=== PATIENT | female | born 1940 | race Hispanic/Latino ===

== ENCOUNTER 2017-03-06 19:56 | Inpatient (IN) | payer MEDICARE ==
[2017-03-06 21:03] LABS: Basophils % (Auto) 0.4 % (0.0-1.8); Eosinophils % (Auto) 3.3 % (0.0-4.3); Hematocrit 39.4 % (30.3-42.9); Hemoglobin 13.5 gm/dl (10.1-14.3); Mean Corpuscular HGB Conc 34 % (30-34); Mean Corpuscular Hemoglobin 31 pg (28-32); Mean Corpuscular Volume 92 fl (79-97); Platelet Count 216 K/mm3 (140-440); Red Blood Count 4.28 M/mm3 (3.65-5.03); Red Cell Distribution Width 13.1 % (13.2-15.2)
[2017-03-06 21:27] LABS: Anion Gap 21 mmol/L; BUN/Creatinine Ratio 17.85; Blood Urea Nitrogen 25 mg/dL (7-17); Calcium 8.4 mg/dL (8.4-10.2); Carbon Dioxide 20 mmol/L (22-30); Chloride 95.7 mmol/L (98-107); Glucose 97 mg/dL (65-100); Potassium 3.7 mmol/L (3.6-5.0); Sodium 133 mmol/L (137-145)
[2017-03-06 21:51] LABS: INR 0.9 (0.87-1.13); Partial Thromboplastin Time 24.2 Sec. (24.2-36.6)
[2017-03-06] MEDS ORDERED: ZOFRAN IV ONE (21:57)
[2017-03-06] MEDS ORDERED: MORPHINE IV ONE (21:57)
--- NOTE | 2017-03-06 21:58 | Emergency Department Report ---
HPI - General Chief Complaint: Chest Pain Time Seen by Provider: 03/06/17 21:09 - HPI HPI: Patient is a 68-year-old female who presents for evaluation of chest pain. The patient reports chest pain for the past 3 hours, constant since onset, pressure- like in quality, 10/10 in severity. She also reports associated dyspnea. The patient denies fever, trauma to the chest wall, cough, syncope, hemoptysis, unilateral leg swelling, recent immobilization, history of DVT or PE, recent cancer. ED Past Medical Hx - Past Medical History Previous Medical History?: Yes Hx Hypertension: Yes Hx CVA: Yes (2012 no deficits) Hx Heart Attack/AMI: Yes (10/24) Hx Congestive Heart Failure: Yes Hx Diabetes: Yes Hx Deep Vein Thrombosis: No Hx Pulmonary Embolism: Yes Hx GERD: No Hx Liver Disease: No Hx Renal Disease: No Hx Sickle Cell Disease: No Hx Arthritis: Yes Hx Headaches / Migraines: No Hx Seizures: No Hx Kidney Stones: No Hx Psychiatric Treatment: No Hx Asthma: No Hx COPD: Yes (diagnosed in 2009) Hx Tuberculosis: No Hx Dementia: No Hx HIV: No Additional medical history: high cholesterol - Surgical History Past Surgical History?: Yes Hx Pacemaker: No Hx Internal Defibrillator: No Hx Cholecystectomy: Yes Hx Appendectomy: Yes Additional Surgical History: tonsiLlectomy. HYSTERECTOMY - Social History Smoking Status: Current Every Day Smoker Substance Use Type: None - Medications Home Medications: Home Medications Medication Instructions Recorded Confirmed Last Taken Type Calcium Carbonate [Oscal] 1,250 mg PO BID 06/27/14 03/01/16 02/29/16 21:00 History Cholecalciferol (Vitamin D3) 1,000 unit PO QDAY 09/29/14 03/01/16 02/29/16 09: 00 History [Vitamin D3] Docusate Sodium [Colace CAP] 100 mg PO BID PRN 09/29/14 03/01/16 02/29/16 21:00 History Dorzolamide/Timolol(Nf) 2-0.5% 1 drops OP BID 09/29/14 03/01/16 02/29/16 21:00 History [Cosopt (Nf)] Multivitamin [Multi-Vitamin Daily] 1 each PO QDAY 09/29/14 03/01/16 02/29/16 09: 00 History with iron Clopidogrel [Plavix] 75 mg PO QDAY tablet 02/25/15 03/01/16 02/29/16 09:00 Rx Metoprolol [Lopressor TAB] 25 mg PO BID tablet 02/25/15 03/01/16 02/29/16 21: 00 Rx Aspirin EC [Aspirin Enteric Coated 81 mg PO QDAY tablet 05/11/15 03/01/1602/28 21:00 Rx TAB] Ondansetron [Zofran ODT TAB] 4 mg PO Q8HR #20 tab.rapdis 08/21/15 03/01/1609/11 Rx 2100 Benzonatate [Tessalon Perles] 100 mg PO Q8HR #60 capsule 09/04/15 03/01/1602/28 21:00 Rx LORazepam [Ativan] 1 mg PO Q8H tablet 09/04/15 03/01/16 02/29/16 Rx OLANzapine [ZyPREXA] 15 mg PO QHS #30 tablet 09/04/15 03/01/16 02/29/16 21:00 Rx 15mg carBAMazepine XR [TEGretol Xr] 200 mg PO BID #60 tablet 09/04/15 03/01/16 21:00 Rx Azithromycin [Zithromax TAB] 500 mg PO QDAY #3 tablet 03/03/16 Unknown Rx Budesoni/Formoterol 80-4.5(Nf) 2 puff IH BID #1 container 03/03/16 Unknown Rx [Symbicort 80-4.5 (Nf)] Prednisone [predniSONE] 20 mg PO QDAY #7 tab 03/03/16 Unknown Rx Zolpidem [Ambien] 5 mg PO QHS PRN #7 tablet 03/03/16 Unknown Rx ED Review of Systems ROS: Stated complaint: CHEST PAIN Other details as noted in HPI Constitutional: denies: fever ENT: denies: throat or neck pain Respiratory: denies: cough, shortness of breath Cardiovascular: reports chest pain Endocrine: denies unexplained weight loss or gain Gastrointestinal: denies: abdominal pain, nausea Genitourinary: denies: dysuria Musculoskeletal: denies: leg swelling Skin: denies: rash Neurological: denies: headache Hematological/Lymphatic: denies: easy bleeding or easy bruising Psych: denies sadness or hopelessness Physical Exam - Physical Exam Vital Signs: Vital Signs 03/06/17 03/06/17 20:35 21:29 Temperature 98.2 F 98.3 F Pulse Rate 60 60 Respiratory 20 19 Rate Blood Pressure 84/50 Blood Pressure 96/53 [Right] O2 Sat by Pulse 98 97 Oximetry Physical Exam: General: well-nourished, well-developed, no acute distress Head: Normocephalic, atraumatic Eyes: normal sclera ENT: Mucous membranes are pink and moist Neck: trachea midline, neck supple, No neck stiffness, no cervical adenopathy Respiratory: Breath sounds equal bilaterally, no wheezing, rales, or rhonchi Cardio: S1 and S2 present, no murmurs, rubs, gallops, capillary refill is brisk Abdomen: Normoactive bowel sounds, soft abdomen, no rigidity, no guarding or rebound tenderness Musc: No pitting edema Skin: No rash Neuro: no facial drooping, normal speech Psych: Normal affect ED Course Vital Signs 03/06/17 03/06/17 20:35 21:29 Temperature 98.2 F 98.3 F Pulse Rate 60 60 Respiratory 20 19 Rate Blood Pressure 84/50 Blood Pressure 96/53 [Right] O2 Sat by Pulse 98 97 Oximetry ED Medical Decision Making - Lab Data Result diagrams: 03/06/17 20:48 03/06/17 20:48 - Medical Decision Making The patient was seen and examined by myself. The patient is placed on a deicer inspector pneumatic and continuous pulse ox. On initial evaluation, the patient was found to be in no distress. EKG was negative for findings suggestive of acute cardiac infarct. The patient is given an aspirin and an IV dose of pain for pain. Labs and imaging are obtained. Chest x-ray is negative for pneumothorax, focal consolidation, pulmonary vascular congestion, pleural effusion, or other obvious acute cardiopulmonary disease process. Lab results revealed elevated creatinine of 1.4, and otherwise labs were non-revealing including negative troponin, WBC, hemoglobin, hematocrit, electrolytes. The patient was reevaluated and reported that their symptoms were improved. As the patient has chest pain and risk factors for development of acute coronary event, the patient will be admitted for close cardiopulmonary monitoring, serial troponins , and evaluation by cardiology. The physician on-call was contacted. They presented to the emergency department and evaluated the patient. They agreed to admit the patient. The ED admit order was placed. The patient was admitted in guarded condition. Critical care attestation.: If time is entered above; I have spent that time in minutes in the direct care of this critically ill patient, excluding procedure time. ED Disposition Clinical Impression: ALAN (acute kidney injury), Acute chest pain Disposition: OP ADMITTED IP TO THIS HOSP Is pt being admited?: Yes Does the pt Need Aspirin: Yes Condition: Fair Instructions: Chest Pain (ED) Time of Disposition: 21:58
[2017-03-06] MEDS ORDERED: BABY ASPIRIN PO ONE (21:59)
[2017-03-06] MEDS ORDERED: DULCOLAX PR PRN (23:46)
[2017-03-06] MEDS ORDERED: MILK OF MAGNESIA PO PRN (23:46)
[2017-03-06] MEDS ORDERED: ZOFRAN IV PRN (23:46)
--- NOTE | 2017-03-06 23:49 | History and Physical Report ---
History of Present Illness Date of examination: 03/06/17 History of present illness: 76-year-old woman with a history of hypertension, diabetes, coronary artery disease, CHF, COPD, osteoporosis comes emergency room with complaints of chest pain. Pain is in the left substernal area which she described as achy feeling, constant, started at 5 PM, intensity 5/10, no radiation, she cannot identify exacerbating or relieving factors. Admits to nausea, no shortness breath, diaphoresis or palpitation. She had a stress test done a few months ago Patient denies cough, abdominal pain, hematochezia, dysuria, frequency, focal weakness, dysarthria, fever chills, polydipsia polyuria, hot or cold intolerance , easy bruisability, or rash or bleeding from mucosal membrane, rhinorrhea, epistaxis, earache, tinnitus, blurry vision, eye discharge, anxiety, depression. Other review of systems negative PAST SURGICAL HISTORY: Appendectomy, hysterectomy, tonsillectomy, hysterectomy SOCIAL HISTORY: Smoke a pack a day, no alcohol or drugs FAMILY HISTORY: Hypertension Medications and Allergies Allergies Allergy/AdvReac Type Severity Reaction Status Date / Time nicotine Allergy Severe PT Verified 05/01/15 01:32 ALLERGIC TO NICOTINE PATCH/ RASH OVER ENTIRE BODY amoxicillin trihydrate Allergy Rash Verified 05/01/15 01:32 [From Augmentin] cephalexin monohydrate Allergy Rash Verified 05/01/15 01:32 [From Keflex] Penicillins Allergy Rash Verified 05/01/15 01:32 potassium clavulanate Allergy Rash Verified 05/01/15 01:32 [From Augmentin] Home Medications Medication Instructions Recorded Confirmed Last Taken Type Calcium Carbonate [Oscal] 1,250 mg PO BID 06/27/14 03/01/16 02/29/16 21:00 History Cholecalciferol (Vitamin D3) 1,000 unit PO QDAY 09/29/14 03/01/16 02/29/16 09: 00 History [Vitamin D3] Docusate Sodium [Colace CAP] 100 mg PO BID PRN 09/29/14 03/01/16 02/29/16 21:00 History Dorzolamide/Timolol(Nf) 2-0.5% 1 drops OP BID 09/29/14 03/01/16 02/29/16 21:00 History [Cosopt (Nf)] Multivitamin [Multi-Vitamin Daily] 1 each PO QDAY 09/29/14 03/01/16 02/29/16 09: 00 History with iron Clopidogrel [Plavix] 75 mg PO QDAY tablet 02/25/15 03/01/16 02/29/16 09:00 Rx Metoprolol [Lopressor TAB] 25 mg PO BID tablet 02/25/15 03/01/16 02/29/16 21: 00 Rx Aspirin EC [Aspirin Enteric Coated 81 mg PO QDAY tablet 05/11/15 03/01/1602/28 21:00 Rx TAB] Ondansetron [Zofran ODT TAB] 4 mg PO Q8HR #20 tab.rapdis 08/21/15 03/01/1609/11 Rx 2100 Benzonatate [Tessalon Perles] 100 mg PO Q8HR #60 capsule 09/04/15 03/01/1602/28 21:00 Rx LORazepam [Ativan] 1 mg PO Q8H tablet 09/04/15 03/01/16 02/29/16 Rx OLANzapine [ZyPREXA] 15 mg PO QHS #30 tablet 09/04/15 03/01/16 02/29/16 21:00 Rx 15mg carBAMazepine XR [TEGretol Xr] 200 mg PO BID #60 tablet 09/04/15 03/01/16 21:00 Rx Azithromycin [Zithromax TAB] 500 mg PO QDAY #3 tablet 03/03/16 Unknown Rx Budesoni/Formoterol 80-4.5(Nf) 2 puff IH BID #1 container 03/03/16 Unknown Rx [Symbicort 80-4.5 (Nf)] Prednisone [predniSONE] 20 mg PO QDAY #7 tab 03/03/16 Unknown Rx Zolpidem [Ambien] 5 mg PO QHS PRN #7 tablet 03/03/16 Unknown Rx Exam - Physical Exam Narrative exam: Gen. appearance: Patient lying in bed, no apparent distress HEENT: Normocephalic, atraumatic, pupils equally round and reactive to light, extraocular movement intact, and no sclericterus,. No JVD or thyromegaly or nodule,neck supple, no carotid bruit ,mucous membranes moist, no exudate or erythema Heart: S1, S2, regular rate and rhythm Lungs: Clear to auscultation bilaterally, breathing comfortable Abdomen: Positive bowel sounds, nontender, nondistended, no organomegaly Extremity: No edema, cyanosis, clubbing Skin: No rash, nodules, warm, dry Neuro: Oriented 3, cranial nerves II-12 intact, speech is fluent, motor and sensory intact - Constitutional Vitals: Temp Pulse Resp BP Pulse Ox 98.3 F 60 19 96/53 97 03/06/17 21:29 03/06/17 21:29 03/06/17 21:29 03/06/17 21:29 03/06/17 21:29 Results - Labs CBC & Chem 7: 03/06/17 20:48 03/06/17 20:48 Labs: Abnormal lab results 03/06/17 03/06/17 03/06/17 Range/Units 20:48 20:48 21:26 RDW 13.1 L (13.2-15.2) % Lymph % (Auto) 41.1 H (13.4-35.0) % [place] % (Auto) 9.9 H (0.0-7.3) % [place] # 0.9 H (0.0-0.8) K/mm3 PT 12.0 L (12.2-14.9) Sec. Chloride 95.7 L (98-107) mmol/L Carbon Dioxide 20 L (22-30) mmol/L BUN 25 H (7-17) mg/dL Creatinine 1.4 H (0.7-1.2) mg/dL - Imaging and Cardiology EKG: image reviewed Chest x-ray: image reviewed Assessment and Plan Unstable angina Coronary artery disease Hypertension Diabetes CHF, stable COPD Osteoarthritis Admits medicine Check cardiac enzymes, consult cardiology Continue outpatient medication, start DVT prophylaxis
[2017-03-07] MEDS: PERCOCET 5/325 PO PRN ×2 (02:01→07:30)
[2017-03-07] MEDS: TYLENOL PO PRN (05:24)
[2017-03-07 06:50] LABS: Hematocrit 40.4 % (30.3-42.9); Hemoglobin 13.7 gm/dl (10.1-14.3); Mean Corpuscular HGB Conc 34 % (30-34); Mean Corpuscular Hemoglobin 31 pg (28-32); Mean Corpuscular Volume 93 fl (79-97); Platelet Count 199 K/mm3 (140-440); Red Blood Count 4.36 M/mm3 (3.65-5.03); Red Cell Distribution Width 13.3 % (13.2-15.2); White Blood Count 7.6 K/mm3 (4.5-11.0)
[2017-03-07 07:07] LABS: BUN/Creatinine Ratio 21.53; Calcium 8.5 mg/dL (8.4-10.2); Chloride 97.3 mmol/L (98-107)
[2017-03-07 07:15] LABS: Creatine Kinase MB 2.1 ng/mL (0.0-4.0)
[2017-03-07 07:17] LABS: Creatine Kinase 80 units/L (30-135)
[2017-03-07 07:37] LABS: Basophils % (Manual) 0 % (0.0-1.8); Blastocytes % (Manual) 0 %
[2017-03-07 07:38] LABS: Diff Status Complete; Platelet Estimate Consistent w Auto; RBC Morphology Normal
[2017-03-07] MEDS ORDERED: PROVENTIL IH ONE (08:01)
--- NOTE | 2017-03-07 08:04 | Admit Criteria Form ---
Admission Criteria Documentation: RENAL FAILURE, ACUTE Clinical Indications for Admission to Inpatient Care ( Place 'X' for any and all applicable criteria): Admission is indicated for ALL (if I & II) or III of the following [A](2)(3)(4)( 5)(6)(7): [ ]I. Acute renal failure as indicated by ANY ONE of the following: [ ]a) A 3-fold rise in serum creatinine from baseline [ ]b) Serum creatinine greater than 4 mg/dL (354 micromoles/L) with an acute rise greater than 0.5 mg/dL (44.2 micromoles/L) [ ]c) Reduction of more than 75% in estimated glomerular filtration rate from baseline [ ]d) Estimated glomerular filtration rate less than 35 mL/min/1.73m2 (0.59mL/sec/1.73m2)in a child up to 18 years of age [ ]e) Anuria indicated by ALL of the following: [ ]i) Adequate volume status [ ]ii) Cessation of urine output indicated by ANY ONE of the following: [ ]1) Urine output less than 0.3 mL/kg/hr for 24 hours [ ]2) Anuria (urine output less than 0.1 mL/kg/ hr) for 12 hours [X] II. Renal failure cannot be managed in an outpatient setting or observational care setting as indicating by ANY ONE of the following: [ ]a) Altered mental status that is severe or persistent [ ]b) Volume overload or Respiratory distress (eg, clinically significant pulmonary edema) that is severe or persistent [ ]c) Cardiac arrhythmias of immediate concern [ ]d) Hemodynamic instability [ ]e) Clinically significant electrolyte abnormality that requires inpatient care (eg, hyperkalemia with severe ECG findings)[B] [ ]f) Clinically significant metabolic abnormality (eg, acidosis) that is severe or persistent [ ]g) Acute treatment of renal failure (eg, renal replacement therapy) not feasible or appropriate in observational care setting [ ]h) Clinical situation too unstable or uncertain (eg, inadequate urine output, ongoing decline in renal function, etiology unclear) [ ]i) Necessary support and caregiver ability to comply with outpatient treatment cannot be arranged in observation care timeframe (eg, within 24 hours) [X]j) Other significant finding or clinical condition judged not to be within scope of observation care [X]III.General contraindications and/or Inappropriate clinical situations for Observational Care in patients with Acute Renal Failure, when ANY ONE of the following is required: [X]a) Prediction of prolongation of LOS based on ANY ONE of the following may be considered as a contraindication for observational care 2, 3, 4, 5, 6, 7, 8 , 9, 10, 11 [X]i) Age > 65 yrs. [ ]ii) Patient arriving by ambulance [ ]iii) Patient with high acuity [ ]iv) Patient requiring vital sign monitoring [ ]v) Patient on IV medication [ ]b) Systolic blood pressures 180mmHg 3,12 [ ]c) Patient with altered mental status including delirium and other alteration of consciousness, (3) [ ]d) Patient whose discharge disposition will be to a care home home or rehabilitation home should not be managed in Emergency Department Observation Unit. CMS rule requires 3 days hospital stay before such placement.3,13 [ ]e) Patient with failure to thrive due to broad array of etiologies 3, 16,17 [ ]f) Inability to ambulate 3,14 Extended stay beyond goal length of stay may be needed for(13) [ ]a) Continuing uremic complications [ ]b) Care for comorbidities [ ]c) acute renal failure [ ]d) Need for dialysis The original [employer] content created by [employer] has been revised. The portions of the content which have been revised are identified through the use of italic text or in bold, and [facility] has neither reviewed nor approved the modified material. All other unmodified content is copyright [facility]. Please see references footnoted in the original [employer] [facility] edition 2016 Admission Criteria Met: Yes
--- NOTE | 2017-03-07 08:09 | XRay Report ---
AP CHEST : 03/06/17 19:56:00 CLINICAL: Chest pain. COMPARISON:03/02/16 FINDINGS: Normal heart and pulmonary vessels. The lungs are mildly hyperexpanded and hyperlucent. Bibasal subsegmental atelectasis. No airspace disease or pleural effusion. No tubes or lines. The bones and soft tissues are unremarkable. IMPRESSION: COPD and mild bibasal subsegmental atelectasis.
[2017-03-07] MEDS ORDERED: ASPIRIN PO SCH (10:00)
[2017-03-07] MEDS ORDERED: LOVENOX SUB-Q SCH (10:00)
--- NOTE | 2017-03-07 10:03 | Consultation ---
History of Present Illness Consult date: 03/07/17 Consult reason: chest pain History of present illness: This is a 76yr old woman who presented to this hospital with chest pain not relieved with nitroglycerin x 3 doses. Patient describes pain under her left breast associated with diaphoresis. An ECG is benign, a normal sinus rhythm. Cardiac enzymes measured were normal; a CK/MB of 2.1 and relative index of 2.6. Cardiac consultation requested for further evaluation and recommendations. Just over 2 years ago she had a cardiac cath that demonstrates mild non- obstructive coronary disease of the mild LAD that was recommended for medical therapy. An echocardiogram August 2015 revealed a normal EF. Today, the patient is resting in bed comfortably and is currently chest pain free. She denies shortness of breath and palpitations. Past History Past Medical History: CAD, COPD, hypertension Medications and Allergies Allergies Allergy/AdvReac Type Severity Reaction Status Date / Time nicotine Allergy Severe PT Verified 05/01/15 01:32 ALLERGIC TO NICOTINE PATCH/ RASH OVER ENTIRE BODY amoxicillin trihydrate Allergy Rash Verified 05/01/15 01:32 [From Augmentin] cephalexin monohydrate Allergy Rash Verified 05/01/15 01:32 [From Keflex] Penicillins Allergy Rash Verified 05/01/15 01:32 potassium clavulanate Allergy Rash Verified 05/01/15 01:32 [From Augmentin] Home Medications Medication Instructions Recorded Confirmed Last Taken Type Calcium Carbonate [Oscal] 1,250 mg PO BID 06/27/14 03/07/17 1 Day Ago History Cholecalciferol (Vitamin D3) 1,000 unit PO QDAY 09/29/14 03/07/17 1 Day Ago History [Vitamin D3] Docusate Sodium [Colace CAP] 100 mg PO BID PRN 09/29/14 03/07/17 1 Day Ago History Dorzolamide/Timolol(Nf) 2-0.5% 1 drops OP BID 09/29/14 03/07/17 1 Day Ago History [Cosopt (Nf)] Multivitamin [Multi-Vitamin Daily] 1 each PO QDAY 09/29/14 03/07/17 1 Day Ago History Clopidogrel [Plavix] 75 mg PO QDAY tablet 02/25/15 03/07/17 1 Day Ago Rx Metoprolol [Lopressor TAB] 25 mg PO BID tablet 02/25/15 03/07/17 1 Day Ago Rx Aspirin EC [Aspirin Enteric Coated 81 mg PO QDAY tablet 05/11/15 03/07/17 1 Day Ago Rx TAB] Ondansetron [Zofran ODT TAB] 4 mg PO Q8HR #20 tab.rapdis 08/21/15 03/07/17 1 Day Ago Rx Benzonatate [Tessalon Perles] 100 mg PO Q8HR #60 capsule 09/04/15 03/07/17 1 Day Ago Rx LORazepam [Ativan] 1 mg PO Q8H tablet 09/04/15 03/07/17 1 Day Ago Rx OLANzapine [ZyPREXA] 15 mg PO QHS #30 tablet 09/04/15 03/07/17 1 Day Ago Rx carBAMazepine XR [TEGretol Xr] 200 mg PO BID #60 tablet 09/04/15 03/07/17 1 Day Ago Rx Azithromycin [Zithromax TAB] 500 mg PO QDAY #3 tablet 03/03/16 03/07/17 1 Day Ago Rx Budesoni/Formoterol 80-4.5(Nf) 2 puff IH BID #1 container 03/03/16 03/07/17 1 Day Ago Rx [Symbicort 80-4.5 (Nf)] Prednisone [predniSONE] 20 mg PO QDAY #7 tab 03/03/16 03/07/17 1 Day Ago Rx Zolpidem [Ambien] 5 mg PO QHS PRN #7 tablet 03/03/16 03/07/17 1 Day Ago Rx Active Meds: Active Medications Acetaminophen (Tylenol) 650 mg PO Q4H PRN PRN Reason: Pain MILD(1-3)/Fever >100.5/HORNE Last Admin: 03/07/17 05:24 Dose: 650 mg Albuterol (Proventil) 2.5 mg IH TIDRT [facility] Aspirin (Aspirin) 325 mg PO QDAY [facility] Last Admin: 03/07/17 09:31 Dose: 325 mg Bisacodyl (Dulcolax) 10 mg [place] QDAY PRN PRN Reason: Constipation unrelieved by MOM Enoxaparin Sodium (Lovenox) 40 mg SUB-Q QDAY [facility] Last Admin: 03/07/17 09:31 Dose: 40 mg Magnesium Hydroxide (Milk Of Magnesia) 30 ml PO Q4H PRN PRN Reason: Constipation Ondansetron HCl (Zofran) 4 mg IV Q8H PRN PRN Reason: N/V unrelieved by Reglan Last Admin: 03/07/17 02:00 Dose: 4 mg Oxycodone/Acetaminophen (Percocet 5/325) 1 tab PO Q6H PRN PRN Reason: Pain, Moderate (4-6) Last Admin: 03/07/17 07:30 Dose: 1 tab Physical Examination Vital Signs Temp Pulse Resp BP Pulse Ox 98.2 F 60 20 84/50 98 03/06/17 20:35 03/06/17 20:35 03/06/17 20:35 03/06/17 20:35 03/06/17 20:35 General appearance: no acute distress HEENT: Positive: PERRL Neck: Positive: trachea midline Cardiac: Positive: Reg Rate and Rhythm Lungs: Positive: Decreased Breath Sounds Results 03/07/17 05:06 03/07/17 05:06 Cardiac Enzymes 03/07/17 Range/Units 05:06 CK-MB (CK-2) 2.1 (0.0-4.0) ng/mL CBC 03/07/17 Range/Units 05:06 WBC 7.6 (4.5-11.0) K/mm3 RBC 4.36 (3.65-5.03) M/mm3 Hgb 13.7 (10.1-14.3) gm/dl Hct 40.4 (30.3-42.9) % Plt Count 199 (140-440) K/mm3 Comprehensive Metabolic Panel 03/07/17 Range/Units 05:06 Sodium 131 L (137-145) mmol/L Potassium 4.0 (3.6-5.0) mmol/L Chloride 97.3 L (98-107) mmol/L Carbon Dioxide 19 L (22-30) mmol/L BUN 28 H (7-17) mg/dL Creatinine 1.3 H (0.7-1.2) mg/dL Glucose 92 (65-100) mg/dL Calcium 8.5 (8.4-10.2) mg/dL EKG interpretations - EKG Sinus rhythms and dysrhythmias: sinus rhythm Assessment and Plan Chest pain, atypical Hx of COPD Hypertension Normal EF on echo 08/2015. LHC 10/2014 revealed mild non obstructive disease of the mid LAD. Ejection fraction 60%. Medical therapy recommended. Plan: Further cardiac evaluation with a pre-discharge dobutamine thallium stress test.
[2017-03-07 10:20] LABS: Creatine Kinase MB 2.2 ng/mL (0.0-4.0)
[2017-03-07 10:21] LABS: Creatine Kinase 81 units/L (30-135)
[2017-03-07] MEDS: PROVENTIL IH SCH ×2 (14:49→20:30)
[2017-03-07] MEDS ORDERED: AMBIEN PO PRN (18:54)
--- NOTE | 2017-03-07 19:04 | Progress Note ---
Assessment and Plan Assessment and plan: 76 yo female with CAD admitted for chest pain that not resolved with Ntg x3 1. Chest pain In a patient with known CAD (nonobstructive mid LAD per cardiac cath 2-3 years ago; normal EF at that time) EKG with no acute ischemic changes cardiac enzymes negative Cardiology consulted and plans stress test in a.m. On dual antiplatelet therapy, statin, beta susi; not on ACEI due to renal impairment 2. CAD See above 3. Hypertension BP controlled on beta susi Monitor and adjust treatment as needed 4. Acute renal failure Likely secondary to vasomotor nephropathy Monitor renal function and electrolytes If EF not significantly decreased, will give IV fluids 5. Metabolic acidosis Likely due to acute kidney injury 6. Hyponatremia Mild, monitor 7. COPD Inhaled bronchodilators, supplemental oxygen as needed 8. Psychiatric disorder Resume olanzapine and carbamazepine 9. DVT prophylaxis Due to acute kidney injury, we'll change Lovenox to heparin subcutaneous History Interval history: chest pain free, no other complaints Hospitalist Physical - Constitutional Vitals: Temp Pulse Resp BP Pulse Ox 97.9 F 70 18 107/54 92 03/07/17 16:00 03/07/17 16:00 03/07/17 16:00 03/07/17 16:00 03/07/17 16:00 General appearance: Present: no acute distress, well-nourished - EENT Eyes: Present: PERRL, EOM intact. Absent: scleral icterus, conjunctival injection - Neck Neck: Present: supple, normal ROM. Absent: masses or JVD - Respiratory Respiratory effort: normal Respiratory: bilateral: CTA, negative: rales, rhonchi, wheezing - Cardiovascular Rhythm: regular Heart Sounds: Present: S1 & S2. Absent: systolic murmur - Extremities Extremities: no ischemia - Abdominal General gastrointestinal: soft, non-tender, non-distended, normal bowel sounds - Psychiatric Psychiatric: cooperative - Neurologic Neurologic: CNII-XII intact, no focal deficits Results - Labs CBC & Chem 7: 03/07/17 05:06 03/07/17 05:06 Labs: Laboratory Last Values WBC 7.6 K/mm3 (4.5-11.0) 03/07/17 05:06 RBC 4.36 M/mm3 (3.65-5.03) 03/07/17 05:06 Hgb 13.7 gm/dl (10.1-14.3) 03/07/17 05:06 Hct 40.4 % (30.3-42.9) 03/07/17 05:06 MCV 93 fl (79-97) 03/07/17 05:06 MCH 31 pg (28-32) 03/07/17 05:06 MCHC 34 % (30-34) 03/07/17 05:06 RDW 13.3 % (13.2-15.2) 03/07/17 05:06 Plt Count 199 K/mm3 (140-440) 03/07/17 05:06 Lymph % (Auto) [employer] 03/07/17 05:06 [place] % (Auto) 9.9 % (0.0-7.3) H 03/06/17 20:48 Eos % (Auto) 3.3 % (0.0-4.3) 03/06/17 20:48 Baso % (Auto) 0.4 % (0.0-1.8) 03/06/17 20:48 Lymph # 3.7 K/mm3 (1.2-5.4) 03/06/17 20:48 [place] # 0.9 K/mm3 (0.0-0.8) H 03/06/17 20:48 Eos # 0.3 K/mm3 (0.0-0.4) 03/06/17 20:48 Baso # 0.0 K/mm3 (0.0-0.1) 03/06/17 20:48 Add Manual Diff Complete 03/07/17 05:06 Total Counted 100 03/07/17 05:06 Seg Neutrophils % [employer] 03/07/17 05:06 Seg Neuts % (Manual) 33.0 % (40.0-70.0) L 03/07/17 05:06 Band Neutrophils % 0 % 03/07/17 05:06 Lymphocytes % (Manual) 55.0 % (13.4-35.0) H 03/07/17 05:06 Reactive Lymphs % (Man) 0 % 03/07/17 05:06 Monocytes % (Manual) 8.0 % (0.0-7.3) H 03/07/17 05:06 Eosinophils % (Manual) 4.0 % (0.0-4.3) 03/07/17 05:06 Basophils % (Manual) 0 % (0.0-1.8) 03/07/17 05:06 Metamyelocytes % 0 % 03/07/17 05:06 Myelocytes % 0 % 03/07/17 05:06 Promyelocytes % 0 % 03/07/17 05:06 Blast Cells % 0 % 03/07/17 05:06 Nucleated RBC % Not Reportable 03/07/17 05:06 Seg Neutrophils # 4.1 K/mm3 (1.8-7.7) 03/06/17 20:48 Seg Neutrophils # Man 2.5 K/mm3 (1.8-7.7) 03/07/17 05:06 Band Neutrophils # 0.0 K/mm3 03/07/17 05:06 Lymphocytes # (Manual) 4.2 K/mm3 (1.2-5.4) 03/07/17 05:06 Abs React Lymphs (Man) 0.0 K/mm3 03/07/17 05:06 Monocytes # (Manual) 0.6 K/mm3 (0.0-0.8) 03/07/17 05:06 Eosinophils # (Manual) 0.3 K/mm3 (0.0-0.4) 03/07/17 05:06 Basophils # (Manual) 0.0 K/mm3 (0.0-0.1) 03/07/17 05:06 Metamyelocytes # 0.0 K/mm3 03/07/17 05:06 Myelocytes # 0.0 K/mm3 03/07/17 05:06 Promyelocytes # 0.0 K/mm3 03/07/17 05:06 Blast Cells # 0.0 K/mm3 03/07/17 05:06 WBC Morphology Not Reportable 03/07/17 05:06 Hypersegmented Neuts Not Reportable 03/07/17 05:06 Hyposegmented Neuts Not Reportable 03/07/17 05:06 Hypogranular Neuts Not Reportable 03/07/17 05:06 Smudge Cells Not Reportable 03/07/17 05:06 Toxic Granulation Not Reportable 03/07/17 05:06 Toxic Vacuolation Not Reportable 03/07/17 05:06 Dohle Bodies Not Reportable 03/07/17 05:06 Pelger-Huet Anomaly Not Reportable 03/07/17 05:06 Aidan Rods Not Reportable 03/07/17 05:06 Platelet Estimate Consistent w auto 03/07/17 05:06 Clumped Platelets Not Reportable 03/07/17 05:06 Plt Clumps, EDTA Not Reportable 03/07/17 05:06 Large Platelets Not Reportable 03/07/17 05:06 Giant Platelets Not Reportable 03/07/17 05:06 Platelet Satelliting Not Reportable 03/07/17 05:06 Plt Morphology Comment Not Reportable 03/07/17 05:06 RBC Morphology Normal 03/07/17 05:06 Dimorphic RBCs Not Reportable 03/07/17 05:06 Polychromasia Not Reportable 03/07/17 05:06 Hypochromasia Not Reportable 03/07/17 05:06 Poikilocytosis Not Reportable 03/07/17 05:06 Anisocytosis Not Reportable 03/07/17 05:06 Microcytosis Not Reportable 03/07/17 05:06 Macrocytosis Not Reportable 03/07/17 05:06 Spherocytes Not Reportable 03/07/17 05:06 Pappenheimer Bodies Not Reportable 03/07/17 05:06 Sickle Cells Not Reportable 03/07/17 05:06 Target Cells Not Reportable 03/07/17 05:06 Tear Drop Cells Not Reportable 03/07/17 05:06 Ovalocytes Not Reportable 03/07/17 05:06 Helmet Cells Not Reportable 03/07/17 05:06 [place]cd[place] Bodies Not Reportable 03/07/17 05:06 [place] Rings Not Reportable 03/07/17 05:06 Indu Cells Not Reportable 03/07/17 05:06 Bite Cells Not Reportable 03/07/17 05:06 Crenated Cell Not Reportable 03/07/17 05:06 Elliptocytes Not Reportable 03/07/17 05:06 Acanthocytes (Spur) Not Reportable 03/07/17 05:06 Rouleaux Not Reportable 03/07/17 05:06 Hemoglobin C Crystals Not Reportable 03/07/17 05:06 Schistocytes Not Reportable 03/07/17 05:06 Malaria parasites Not Reportable 03/07/17 05:06 John Bodies Not Reportable 03/07/17 05:06 Hem Pathologist Commnt No 03/07/17 05:06 PT 12.0 Sec. (12.2-14.9) L 03/06/17 21:26 INR 0.90 (0.87-1.13) 03/06/17 21:26 APTT 24.2 Sec. (24.2-36.6) 03/06/17 21:26 Sodium 131 mmol/L (137-145) L 03/07/17 05:06 Potassium 4.0 mmol/L (3.6-5.0) 03/07/17 05:06 Chloride 97.3 mmol/L (98-107) L 03/07/17 05:06 Carbon Dioxide 19 mmol/L (22-30) L 03/07/17 05:06 Anion Gap 19 mmol/L 03/07/17 05:06 BUN 28 mg/dL (7-17) H 03/07/17 05:06 Creatinine 1.3 mg/dL (0.7-1.2) H 03/07/17 05:06 Estimated GFR 40 ml/min 03/07/17 05:06 BUN/Creatinine Ratio 21.53 % 03/07/17 05:06 Glucose 92 mg/dL (65-100) 03/07/17 05:06 Calcium 8.5 mg/dL (8.4-10.2) 03/07/17 05:06 Total Creatine Kinase 81 units/L (30-135) 03/07/17 09:30 CK-MB (CK-2) 2.2 ng/mL (0.0-4.0) 03/07/17 09:30 CK-MB (CK-2) Rel Index 2.7 (0-4) 03/07/17 09:30 Troponin T < 0.010 ng/mL (0.00-0.029) 03/07/17 09:30
[2017-03-07] MEDS ORDERED: COLACE PO PRN (19:05)
[2017-03-07] MEDS: OSCAL PO SCH (21:16)
[2017-03-07] MEDS: ATIVAN PO SCH (21:17)
[2017-03-07] MEDS: HEPARIN SUB-Q SCH (21:18)
[2017-03-07] MEDS: LOPRESSOR PO SCH (21:20)
[2017-03-07] MEDS ORDERED: TIMOLOL OP SCH (22:00)
[2017-03-07] MEDS ORDERED: DORZOLAMIDE OP SCH (22:00)
[2017-03-08 06:29] LABS: BUN/Creatinine Ratio 17.69; Calcium 8.4 mg/dL (8.4-10.2); Chloride 102.6 mmol/L (98-107); Potassium 4.2 mmol/L (3.6-5.0)
[2017-03-08] MEDS: HEPARIN SUB-Q SCH ×3 (06:30→22:00)
[2017-03-08] MEDS: PROVENTIL IH SCH ×3 (07:39→20:00)
[2017-03-08] MEDS ORDERED: DOBUTamine 100 MG in D5W 92 ML IV SCH (10:00)
[2017-03-08] MEDS ORDERED: NON-FORMULARY (Cholecalciferol (Vitamin D3) [Vitamin D3] 1,000 UNIT) PO SCH (10:00)
[2017-03-08] MEDS: PLAVIX PO SCH (11:38)
[2017-03-08] MEDS: VITAMIN D3 PO SCH (11:38)
[2017-03-08] MEDS: ATIVAN PO SCH ×2 (11:39→22:01)
[2017-03-08] MEDS: OSCAL PO SCH ×2 (11:39→22:01)
--- NOTE | 2017-03-08 11:39 | Progress Note ---
Assessment and Plan Chest pain, atypical Normal dobutamine MPI this admission Hx of COPD Hypertension Normal EF on echo 08/2015. LHC 10/2014 revealed mild non obstructive disease of the mid LAD. Ejection fraction 60%. Medical therapy recommended. Plan: Start lipitor 40 mg po qhs No further cardiac work-up Subjective Date of service: 03/08/17 Principal diagnosis: Chest Pain Interval history: patient underwent a dobuamine stress test without complications, no ischemic ECG changes Objective Vital Signs Temp Pulse Pulse Pulse Pulse Resp Resp 03/08/17 08:16 98.5 F 57 L 14 03/08/17 07:48 69 18 03/08/17 07:43 03/08/17 07:39 64 18 03/08/17 05:00 98 F 69 20 03/08/17 01:00 75 03/08/17 00:54 98.5 F 75 20 03/07/17 21:20 68 03/07/17 20:00 98 F 68 20 03/07/17 19:53 03/07/17 16:00 97.9 F 70 18 03/07/17 12:00 97.8 F 70 18 BP BP Pulse Ox 03/08/17 08:16 155/79 99 03/08/17 07:48 03/08/17 07:43 98 03/08/17 07:39 03/08/17 05:00 114/58 95 03/08/17 01:00 03/08/17 00:54 120/61 95 03/07/17 21:20 109/58 03/07/17 20:00 109/58 94 03/07/17 19:53 94 03/07/17 16:00 107/54 92 03/07/17 12:00 111/56 - Physical Examination HEENT: Positive: PERRL Neck: Positive: trachea midline Cardiac: Positive: Reg Rate and Rhythm Lungs: Positive: Normal Exam - Labs and Meds Comprehensive Metabolic Panel 03/08/17 Range/Units 04:32 Sodium 137 (137-145) mmol/L Potassium 4.2 (3.6-5.0) mmol/L Chloride 102.6 (98-107) mmol/L Carbon Dioxide 20 L (22-30) mmol/L BUN 23 H (7-17) mg/dL Creatinine 1.3 H (0.7-1.2) mg/dL Glucose 107 H (65-100) mg/dL Calcium 8.4 (8.4-10.2) mg/dL - Imaging and Cardiology EKG: image reviewed - EKG Sinus rhythms and dysrhythmias: sinus rhythm
[2017-03-08] MEDS: HALFPRIN EC PO SCH (11:41)
[2017-03-08] MEDS: LOPRESSOR PO SCH ×2 (11:41→22:00)
[2017-03-08] MEDS: PERCOCET 5/325 PO PRN (13:51)
[2017-03-08] MEDS ORDERED: NACL 0.9% 1000 ML 1,000 ML IV SCH (16:00)
--- NOTE | 2017-03-08 17:33 | Progress Note ---
Assessment and Plan Assessment and plan: 76 yo female with CAD admitted for chest pain that not resolved with Ntg x3 1. Chest pain In a patient with known CAD (nonobstructive mid LAD per cardiac cath 2-3 years ago; normal EF at that time) EKG with no acute ischemic changes, cardiac enzymes negative Cardiology consulted and stress test obtained this morning - negative; recom to continue current management On dual antiplatelet therapy, statin, beta susi; not on ACEI due to renal impairment 2. CAD See above 3. Hypertension On beta susi BP slightly elevated today Will monitor for the last 12-24 hours, add another antihypertensive if necessary 4. Acute renal failure Likely secondary to vasomotor nephropathy/diuretic use As EF wnl, will give IV fluids Monitor BUN/Cr and electrolytes 5. Metabolic acidosis Likely due to acute kidney injury 6. Hyponatremia Resolved 7. COPD Inhaled bronchodilators, supplemental oxygen as needed 8. Psychiatric disorder Olanzapine and carbamazepine resumed 9. DVT prophylaxis Due to acute kidney injury, Lovenox was changed to heparin subcutaneous History Interval history: doing well, no complaints; s/p MPI in the morning Hospitalist Physical - Constitutional Vitals: Temp Pulse Resp BP Pulse Ox 98.4 F 62 16 155/74 98 03/08/17 16:28 03/08/17 16:28 03/08/17 16:28 03/08/17 16:28 03/08/17 16:28 General appearance: Present: no acute distress, well-nourished - EENT Eyes: Present: PERRL, EOM intact. Absent: scleral icterus, conjunctival injection - Neck Neck: Present: supple, normal ROM. Absent: masses or JVD - Respiratory Respiratory effort: normal Respiratory: bilateral: CTA, negative: rhonchi, wheezing - Cardiovascular Rhythm: regular Heart Sounds: Present: S1 & S2. Absent: systolic murmur - Extremities Extremities: no ischemia, No edema - Abdominal General gastrointestinal: soft, non-tender, non-distended, normal bowel sounds - Psychiatric Psychiatric: cooperative - Neurologic Neurologic: CNII-XII intact, no focal deficits Results - Labs CBC & Chem 7: 03/07/17 05:06 03/08/17 04:32 Labs: Laboratory Last Values WBC 7.6 K/mm3 (4.5-11.0) 03/07/17 05:06 RBC 4.36 M/mm3 (3.65-5.03) 03/07/17 05:06 Hgb 13.7 gm/dl (10.1-14.3) 03/07/17 05:06 Hct 40.4 % (30.3-42.9) 03/07/17 05:06 MCV 93 fl (79-97) 03/07/17 05:06 MCH 31 pg (28-32) 03/07/17 05:06 MCHC 34 % (30-34) 03/07/17 05:06 RDW 13.3 % (13.2-15.2) 03/07/17 05:06 Plt Count 199 K/mm3 (140-440) 03/07/17 05:06 Lymph % (Auto) [employer] 03/07/17 05:06 [place] % (Auto) 9.9 % (0.0-7.3) H 03/06/17 20:48 Eos % (Auto) 3.3 % (0.0-4.3) 03/06/17 20:48 Baso % (Auto) 0.4 % (0.0-1.8) 03/06/17 20:48 Lymph # 3.7 K/mm3 (1.2-5.4) 03/06/17 20:48 [place] # 0.9 K/mm3 (0.0-0.8) H 03/06/17 20:48 Eos # 0.3 K/mm3 (0.0-0.4) 03/06/17 20:48 Baso # 0.0 K/mm3 (0.0-0.1) 03/06/17 20:48 Add Manual Diff Complete 03/07/17 05:06 Total Counted 100 03/07/17 05:06 Seg Neutrophils % [employer] 03/07/17 05:06 Seg Neuts % (Manual) 33.0 % (40.0-70.0) L 03/07/17 05:06 Band Neutrophils % 0 % 03/07/17 05:06 Lymphocytes % (Manual) 55.0 % (13.4-35.0) H 03/07/17 05:06 Reactive Lymphs % (Man) 0 % 03/07/17 05:06 Monocytes % (Manual) 8.0 % (0.0-7.3) H 03/07/17 05:06 Eosinophils % (Manual) 4.0 % (0.0-4.3) 03/07/17 05:06 Basophils % (Manual) 0 % (0.0-1.8) 03/07/17 05:06 Metamyelocytes % 0 % 03/07/17 05:06 Myelocytes % 0 % 03/07/17 05:06 Promyelocytes % 0 % 03/07/17 05:06 Blast Cells % 0 % 03/07/17 05:06 Nucleated RBC % Not Reportable 03/07/17 05:06 Seg Neutrophils # 4.1 K/mm3 (1.8-7.7) 03/06/17 20:48 Seg Neutrophils # Man 2.5 K/mm3 (1.8-7.7) 03/07/17 05:06 Band Neutrophils # 0.0 K/mm3 03/07/17 05:06 Lymphocytes # (Manual) 4.2 K/mm3 (1.2-5.4) 03/07/17 05:06 Abs React Lymphs (Man) 0.0 K/mm3 03/07/17 05:06 Monocytes # (Manual) 0.6 K/mm3 (0.0-0.8) 03/07/17 05:06 Eosinophils # (Manual) 0.3 K/mm3 (0.0-0.4) 03/07/17 05:06 Basophils # (Manual) 0.0 K/mm3 (0.0-0.1) 03/07/17 05:06 Metamyelocytes # 0.0 K/mm3 03/07/17 05:06 Myelocytes # 0.0 K/mm3 03/07/17 05:06 Promyelocytes # 0.0 K/mm3 03/07/17 05:06 Blast Cells # 0.0 K/mm3 03/07/17 05:06 WBC Morphology Not Reportable 03/07/17 05:06 Hypersegmented Neuts Not Reportable 03/07/17 05:06 Hyposegmented Neuts Not Reportable 03/07/17 05:06 Hypogranular Neuts Not Reportable 03/07/17 05:06 Smudge Cells Not Reportable 03/07/17 05:06 Toxic Granulation Not Reportable 03/07/17 05:06 Toxic Vacuolation Not Reportable 03/07/17 05:06 Dohle Bodies Not Reportable 03/07/17 05:06 Pelger-Huet Anomaly Not Reportable 03/07/17 05:06 Aidan Rods Not Reportable 03/07/17 05:06 Platelet Estimate Consistent w auto 03/07/17 05:06 Clumped Platelets Not Reportable 03/07/17 05:06 Plt Clumps, EDTA Not Reportable 03/07/17 05:06 Large Platelets Not Reportable 03/07/17 05:06 Giant Platelets Not Reportable 03/07/17 05:06 Platelet Satelliting Not Reportable 03/07/17 05:06 Plt Morphology Comment Not Reportable 03/07/17 05:06 RBC Morphology Normal 03/07/17 05:06 Dimorphic RBCs Not Reportable 03/07/17 05:06 Polychromasia Not Reportable 03/07/17 05:06 Hypochromasia Not Reportable 03/07/17 05:06 Poikilocytosis Not Reportable 03/07/17 05:06 Anisocytosis Not Reportable 03/07/17 05:06 Microcytosis Not Reportable 03/07/17 05:06 Macrocytosis Not Reportable 03/07/17 05:06 Spherocytes Not Reportable 03/07/17 05:06 Pappenheimer Bodies Not Reportable 03/07/17 05:06 Sickle Cells Not Reportable 03/07/17 05:06 Target Cells Not Reportable 03/07/17 05:06 Tear Drop Cells Not Reportable 03/07/17 05:06 Ovalocytes Not Reportable 03/07/17 05:06 Helmet Cells Not Reportable 03/07/17 05:06 Mcdonald-[place] Bodies Not Reportable 03/07/17 05:06 [place] Rings Not Reportable 03/07/17 05:06 Indu Cells Not Reportable 03/07/17 05:06 Bite Cells Not Reportable 03/07/17 05:06 Crenated Cell Not Reportable 03/07/17 05:06 Elliptocytes Not Reportable 03/07/17 05:06 Acanthocytes (Spur) Not Reportable 03/07/17 05:06 Rouleaux Not Reportable 03/07/17 05:06 Hemoglobin C Crystals Not Reportable 03/07/17 05:06 Schistocytes Not Reportable 03/07/17 05:06 Malaria parasites Not Reportable 03/07/17 05:06 John Bodies Not Reportable 03/07/17 05:06 Hem Pathologist Commnt No 03/07/17 05:06 PT 12.0 Sec. (12.2-14.9) L 03/06/17 21:26 INR 0.90 (0.87-1.13) 03/06/17 21:26 APTT 24.2 Sec. (24.2-36.6) 03/06/17 21:26 Sodium 137 mmol/L (137-145) 03/08/17 04:32 Potassium 4.2 mmol/L (3.6-5.0) 03/08/17 04:32 Chloride 102.6 mmol/L (98-107) 03/08/17 04:32 Carbon Dioxide 20 mmol/L (22-30) L 03/08/17 04:32 Anion Gap 19 mmol/L 03/08/17 04:32 BUN 23 mg/dL (7-17) H 03/08/17 04:32 Creatinine 1.3 mg/dL (0.7-1.2) H 03/08/17 04:32 Estimated GFR 40 ml/min 03/08/17 04:32 BUN/Creatinine Ratio 17.69 % 03/08/17 04:32 Glucose 107 mg/dL (65-100) H 03/08/17 04:32 Calcium 8.4 mg/dL (8.4-10.2) 03/08/17 04:32 Total Creatine Kinase 81 units/L (30-135) 03/07/17 09:30 CK-MB (CK-2) 2.2 ng/mL (0.0-4.0) 03/07/17 09:30 CK-MB (CK-2) Rel Index 2.7 (0-4) 03/07/17 09:30 Troponin T < 0.010 ng/mL (0.00-0.029) 03/07/17 09:30 - Imaging and Cardiology Imaging and Cardiology: MPI normal
--- NOTE | 2017-03-08 22:07 | Treadmill Report ---
ORDERING PHYSICIAN: Taina Gerard MD FINDINGS: There is no scintigraphic evidence of myocardial ischemia. The left ventricle is normal in size and systolic function. The left ventricular ejection fraction is measured at 90%. There is normal wall motion and wall thickening on gated imaging. CONCLUSION: Normal perfusion scan. JOB# [id number] YASH/NTS
[2017-03-09] MEDS: PROVENTIL IH SCH ×3 (02:14→13:01)
[2017-03-09] MEDS: TYLENOL PO PRN (03:48)
[2017-03-09] MEDS: HEPARIN SUB-Q SCH (06:01)
[2017-03-09 06:57] LABS: BUN/Creatinine Ratio 12.72; Calcium 8.4 mg/dL (8.4-10.2); Potassium 3.8 mmol/L (3.6-5.0)
[2017-03-09] MEDS: LOPRESSOR PO SCH (09:17)
[2017-03-09] MEDS: PLAVIX PO SCH (09:19)
[2017-03-09] MEDS: VITAMIN D3 PO SCH (09:19)
[2017-03-09] MEDS: OSCAL PO SCH (09:19)
[2017-03-09] MEDS: HALFPRIN EC PO SCH (09:19)
[2017-03-09] MEDS: ATIVAN PO SCH (09:20)
--- NOTE | 2017-03-09 09:23 | Discharge Summary ---
Providers - Providers Date of Admission: 03/06/17 23:46 Date of discharge: 03/09/17 Attending physician: TEDDY BAHENA CONSULTS: Cardiology Primary care physician: LILIAM LIGHT MD Hospitalization Reason for admission: chest pain Condition: Stable Pertinent studies: CXR MPI Hospital course: Patient is a 76 yo female with CAD admitted for chest pain; she had a cardiac cath 2-3 years ago that showed nonobstructive mid LAD with normal EF. ACS excluded based on EKG, normal CE and negative stress test. Cardiology was consulted and recommended medical management; her regimen has been adjusted; she will be discharged on dual antiplatelet therapy, beta susi and statin; not on MARY inhibitor to renal impairment. Advised to follow with her PCP. Discharge diagnosis: 1. Chest pain - noncardiac, possible GERD 2. CAD 3. Hypertension 4. Acute renal failure - improved with ivf, will be followed by PCP 5. Metabolic acidosis 6. Hyponatremia - the side effect of Tegretol 7. COPD 8. Psychiatric disorder Disposition: DISCHARGED TO HOME OR SELFCARE Time spent for discharge: 35 min Core Measure Documentation - Palliative Care Palliative Care/ Comfort Measures: Not Applicable - Core Measures Any of the following diagnoses?: none Exam - Physical Exam Narrative exam: Patient seen and examined: - Constitutional Vitals: Temp Pulse Resp BP Pulse Ox 98.6 F 73 16 120/71 96 03/09/17 08:34 03/09/17 08:34 03/09/17 08:34 03/09/17 08:34 03/09/17 08:34 General appearance: Present: no acute distress, well-nourished - EENT Eyes: Present: PERRL, EOM intact. Absent: scleral icterus, conjunctival injection - Neck Neck: Present: supple, normal ROM. Absent: masses or JVD - Respiratory Respiratory effort: normal Respiratory: bilateral: CTA, negative: rhonchi, wheezing - Cardiovascular Rhythm: regular Heart Sounds: Present: S1 & S2. Absent: systolic murmur - Extremities Extremities: no ischemia - Abdominal General gastrointestinal: Present: soft, non-tender, non-distended, normal bowel sounds - Musculoskeletal Musculoskeletal: strength equal bilaterally - Psychiatric Psychiatric: cooperative - Neurologic Neurologic: CNII-XII intact, no focal deficits Plan Activity: advance as tolerated Diet: low cholesterol, low salt Follow up with: PRIMARY CARE, [Primary Care Provider] - 3 Days (recheck BMP) Prescriptions: AtorvaSTATin [Lipitor] 40 mg PO QHS #30 tablet OLANzapine [ZyPREXA] 15 mg PO QHS #30 tablet Aspirin EC [Aspirin Enteric Coated TAB] 81 mg PO QDAY #30 tablet carBAMazepine XR [TEGretol Xr] 200 mg PO BID #60 tablet Clopidogrel [Plavix] 75 mg PO QDAY #30 tablet Docusate Sodium [Colace CAP] 100 mg PO BID PRN #30 capsule PRN Reason: Constipation Famotidine [Pepcid] 10 mg PO BID #60 tablet LORazepam [Ativan] 1 mg PO Q12HR #60 tablet Metoprolol [Lopressor TAB] 25 mg PO BID #60 tablet
[2017-03-09 12:24] VITALS: BP 99/58
== END 2017-03-09 13:45 | disposition home or self-care (01) | DRG 391 ==
LOC: ED 19:56 → 4A 23:46
PROVIDERS: ADMIT Internal Medicine; ATTEND Internal Medicine
DX: K21.9 Gastro-esophageal reflux disease without esophagitis (principal); N17.0 Acute kidney failure with tubular necrosis; I25.110 Atherosclerotic heart disease of native coronary artery with unstable angina pectoris; N17.9 Acute kidney failure, unspecified; E87.2 Acidosis; E87.1 Hypo-osmolality and hyponatremia; E11.8 Type 2 diabetes mellitus with unspecified complications; I50.9 Heart failure, unspecified; J44.9 Chronic obstructive pulmonary disease, unspecified; M19.90 Unspecified osteoarthritis, unspecified site; F99 Mental disorder, not otherwise specified; I11.0 Hypertensive heart disease with heart failure; F17.200 Nicotine dependence, unspecified, uncomplicated; M81.0 Age-related osteoporosis without current pathological fracture; Z86.73 Personal history of transient ischemic attack (TIA), and cerebral infarction without residual deficits; I25.2 Old myocardial infarction; Z86.711 Personal history of pulmonary embolism; Z90.49 Acquired absence of other specified parts of digestive tract; Z90.710 Acquired absence of both cervix and uterus; Z82.49 Family history of ischemic heart disease and other diseases of the circulatory system; Z88.0 Allergy status to penicillin; Z88.1 Allergy status to other antibiotic agents
CPT/HCPCS: 36415; 71010; 78452; 80048; 82550; 82553; 84484; 85007; 85025; 85610; 85730; 93005; 93010; 93017; 94640; 94760; 96374; 96375; 99406; A9270-GY; A9502; J1250; J1644; J1650; J2270; J2405; J7030

== ENCOUNTER 2020-04-16 09:44 | Inpatient (IN) | payer MEDICARE ==
[2020-04-16 11:26] LABS: Basophils % (Auto) 0.3 % (0.0-1.8); Eosinophils # (Auto) 0.1 K/mm3 (0.0-0.4); Eosinophils % (Auto) 0.6 % (0.0-4.3); Hematocrit 46.3 % (30.3-42.9); Hemoglobin 15.6 gm/dl (10.1-14.3); Lymphocytes # (Auto) 2.5 K/mm3 (1.2-5.4); Lymphocytes % (Auto) 24.6 % (13.4-35.0); Mean Corpuscular HGB Conc 34 % (30-34); Mean Corpuscular Volume 93 fl (79-97); Monocytes # (Auto) 0.6 K/mm3 (0.0-0.8); Monocytes % (Auto) 6.2 % (0.0-7.3); Platelet Count 263 K/mm3 (140-440); Red Blood Count 4.96 M/mm3 (3.65-5.03); Red Cell Distribution Width 13.5 % (13.2-15.2)
[2020-04-16 11:42] LABS: BUN/Creatinine Ratio 12; Blood Urea Nitrogen 11 mg/dL (7-17); Calcium 9.7 mg/dL (8.4-10.2); Hemolysis Index 70
[2020-04-16 15:23] LABS: ABG HCO3 22.9 mmol/L (20.0-26.0); ABG Methemoglobin 0.2 % (0.0-1.5); ABG Oxygen Saturation 87.4 % (95.0-99.0); ABG PCO2 35.6 mm Hg; ABG PH 7.426 pH Units (7.350-7.450); ABG PO2 50.2 mm Hg (80.0-90.0)
[2020-04-17 05:26] LABS: Basophils % (Auto) 0.1 % (0.0-1.8); Hematocrit 39.8 % (30.3-42.9); Hemoglobin 13.3 gm/dl (10.1-14.3); Lymphocytes # (Auto) 1.3 K/mm3 (1.2-5.4); Lymphocytes % (Auto) 12.7 % (13.4-35.0); Mean Corpuscular HGB Conc 33 % (30-34); Mean Corpuscular Volume 92 fl (79-97); Monocytes # (Auto) 0.3 K/mm3 (0.0-0.8); Monocytes % (Auto) 3.3 % (0.0-7.3); Platelet Count 257 K/mm3 (140-440); Red Blood Count 4.34 M/mm3 (3.65-5.03); Red Cell Distribution Width 13.4 % (13.2-15.2)
[2020-04-17 05:51] LABS: Alanine Aminotransferase 11 units/L (7-56); Albumin 4.1 g/dL (3.9-5); BUN/Creatinine Ratio 19; Blood Urea Nitrogen 15 mg/dL (7-17); Calcium 9.2 mg/dL (8.4-10.2); Hemolysis Index 9
[2020-04-18 04:51] LABS: BUN/Creatinine Ratio 19; Blood Urea Nitrogen 17 mg/dL (7-17); Calcium 8.8 mg/dL (8.4-10.2); Hemolysis Index 20
[2020-04-19 04:29] LABS: Hematocrit 35.9 % (30.3-42.9); Hemoglobin 12.3 gm/dl (10.1-14.3); Mean Corpuscular HGB Conc 34 % (30-34); Mean Corpuscular Volume 93 fl (79-97); Platelet Count 267 K/mm3 (140-440); Red Blood Count 3.85 M/mm3 (3.65-5.03); Red Cell Distribution Width 13.4 % (13.2-15.2)
[2020-04-19 04:41] LABS: BUN/Creatinine Ratio 19; Blood Urea Nitrogen 15 mg/dL (7-17); Calcium 9.1 mg/dL (8.4-10.2); Hemolysis Index 33
[2020-04-20 11:54] LABS: ABG Base Excess 2.1 mmol/L (-2.0-3.0); ABG HCO3 26.8 mmol/L (20.0-26.0); ABG Methemoglobin 0.6 % (0.0-1.5); ABG Oxygen Saturation 92.4 % (95.0-99.0); ABG PCO2 42.3 mm Hg; ABG PH 7.42 pH Units (7.350-7.450); ABG PO2 61.6 mm Hg (80.0-90.0)
[2020-04-20 13:54] VITALS: BP 150/69
== END 2020-04-20 16:12 | disposition home or self-care (01) | DRG 189 ==
LOC: ED 09:44 → 4A 15:43 → INTOOBSV 15:43 → 4A 17:52 → OBSVTOIN 04-18 12:16
PROVIDERS: ADMIT Internal Medicine; ATTEND Hospitalist
PROC: 4A033R1 Measurement of Arterial Saturation, Peripheral, Percutaneous Approach (ICD-10-PCS; principal; 2020-04-20)
DX: J96.01 Acute respiratory failure with hypoxia (principal); J44.1 Chronic obstructive pulmonary disease with (acute) exacerbation; E87.1 Hypo-osmolality and hyponatremia; J44.0 Chronic obstructive pulmonary disease with (acute) lower respiratory infection; E78.00 Pure hypercholesterolemia, unspecified; I50.9 Heart failure, unspecified; E11.9 Type 2 diabetes mellitus without complications; M19.90 Unspecified osteoarthritis, unspecified site; I11.0 Hypertensive heart disease with heart failure; E78.2 Mixed hyperlipidemia; E55.9 Vitamin D deficiency, unspecified; I25.10 Atherosclerotic heart disease of native coronary artery without angina pectoris; J20.9 Acute bronchitis, unspecified; K21.9 Gastro-esophageal reflux disease without esophagitis; G40.909 Epilepsy, unspecified, not intractable, without status epilepticus; Z88.0 Allergy status to penicillin; Z90.49 Acquired absence of other specified parts of digestive tract; I25.2 Old myocardial infarction; Z86.73 Personal history of transient ischemic attack (TIA), and cerebral infarction without residual deficits; Z79.899 Other long term (current) drug therapy; Z90.710 Acquired absence of both cervix and uterus; Z87.891 Personal history of nicotine dependence; Z88.1 Allergy status to other antibiotic agents; Z88.8 Allergy status to other drugs, medicaments and biological substances
CPT/HCPCS: 36415; 36600; 71045; 80048; 80053; 82803; 82962; 83036; 85025; 85027; 90471; 90686; 94640; 94644; 94760; G0378; A9270-GY; G0008; J0456; J1200; J1644; J1815; J1956; J2405; J2920; J2930; J3475; J7050

== ENCOUNTER 2020-04-21 09:56 | Observation (INO) | payer MEDICARE ==
[2020-04-21] MEDS ORDERED: ALBUTEROL 2.5 MG/3 ML NEBU IH ONE (10:21)
[2020-04-21] MEDS ORDERED: SODIUM CHLORIDE 0.9% 250ML 250 ML IV ONE (10:21)
[2020-04-21] MEDS ORDERED: ACETAMINOPHEN 325 MG/10.15 ML ORAL LIQD UNIT DOSE PO ONE (10:21)
[2020-04-21] MEDS ORDERED: IPRATROPIUM 0.02% NEBU 2.5 ML IH ONE (10:21)
--- NOTE | 2020-04-21 10:23 | Emergency Department Report ---
ED General Adult HPI - General Chief complaint: Adult Asthma Stated complaint: COPD PUI?: No Time Seen by Provider: 04/21/20 10:02 Source: patient, EMS (Verbal report received from emergency medical services. EMS documentation not available at time of chart dictation ), RN notes reviewed, old records reviewed Mode of arrival: Stretcher Limitations: Physical Limitation - History of Present Illness Initial comments: Patient is an 79-year-old female. I have evaluated her in the past. Her primary care doctor is : Dr Robertson Her traffic law attorney is :Dr Celeste Thomas The patient has a history of COPD, not on home oxygen, has been intubated in the past by myself for respiratory failure, in 2016. She was recently admitted to this hospital for COPD exacerbation. She was treated appropriately, and convalesced appropriately. The patient was discharged yesterday, and as per her discharge summary, "patient had a walk fit test prior to discharge and oxygen saturations were 93 to 94%. Patient therefore, will be discharged home and is to follow-up with her PCP and traffic law attorney." In addition, the patient was seen by case management in the past during her recent admission, who indicated that they were "no needs for additional durable medical equipment, or HHC." Today, the patient is brought to the hospital by emergency medical services with a complaint of shortness of breath. Apparently, it started at 7:00 this morning. EMS verbally reported that the patient was saturating in the 70s and wheezing. She was given nebulizer therapy, steroids, and magnesium. All these interventions improved her symptoms. The patient denies neck pain, headache, chest pain. She has chronic shortness of breath, chronic cough, and chronic wheezing. Denies fever, loss of taste and smell. She also describes diffuse abdominal cramping and discomfort. She reports not having had a bowel movement for a few days. Past surgical history significant for hysterectomy, and appendectomy. Denies focal extremity weakness and or numbness. Shortness of breath is chronic. Increases with physical exertion and decreases with rest. Abdominal cramping is diffuse, does not radiate anywhere, and the patient does not describe exacerbating or relieving factors. She is requesting analgesics. -: Sudden, hour(s) Radiation: abdomen Quality: other Consistency: other Improves with: other Worsens with: other Associated Symptoms: other (See history of present illness) Treatments Prior to Arrival: other (See history of present illness) - Related Data Home Medications Medication Instructions Recorded Confirmed Last Taken Calcium Carbonate [Oscal 1250MG 1,250 mg PO BID 06/27/14 04/16/20 04/16/20 TAB] Cholecalciferol (Vitamin D3) 1,000 unit PO QDAY 09/29/14 04/16/20 04/21/20 [Vitamin D3] Dorzolamide/Timolol(Nf) 2-0.5% 1 drops OP BID 09/29/14 04/16/20 04/16/20 [Cosopt (Nf)] Multivitamin [Multi-Vitamin Daily] 1 each PO QDAY 09/29/14 04/16/20 1 Day Ago ~04/20/20 traZODone [Desyrel] 50 mg PO QHS 04/16/20 04/16/20 04/21/20 Previous Rx's Medication Instructions Recorded Last Taken Type Budesoni/Formoterol 80-4.5(Nf) 2 puff IH BID #1 container 03/03/16 04/16/20 Rx [Symbicort 80-4.5 (Nf)] Zolpidem [Ambien] 5 mg PO QHS PRN #7 tablet 03/03/16 04/16/20 Rx Aspirin EC [Halfprin EC] 81 mg PO QDAY #30 tablet 03/09/17 04/21/20 Rx AtorvaSTATin [Lipitor] 40 mg PO QHS #30 tablet 03/09/17 04/16/20 Rx Clopidogrel [Plavix] 75 mg PO QDAY #30 tablet 03/09/17 04/21/20 Rx Famotidine [Pepcid] 10 mg PO BID #60 tablet 03/09/17 04/16/20 Rx LORazepam [Ativan] 1 mg PO Q12HR #60 tablet 03/09/17 04/16/20 Rx Metoprolol [Lopressor TAB] 25 mg PO BID #60 tablet 03/09/17 04/21/20 Rx OLANzapine [ZyPREXA] 15 mg PO QHS #30 tablet 03/09/17 04/16/20 Rx carBAMazepine XR [TEGretol Xr] 200 mg PO BID #60 tablet 03/09/17 04/16/20 Rx Docusate Sodium [Colace CAP] 100 mg PO BID #60 capsule 04/22/20 Unknown Rx Polyethylene Glycol 3350 [Miralax] 119 gm PO DAILY #30 powder 04/22/20 Unknown Rx bisacodyL [Dulcolax suppos] 10 mg AL QDAY #10 supp.rect 04/22/20 Unknown Rx Allergies Allergy/AdvReac Type Severity Reaction Status Date / Time nicotine Allergy Severe PT Verified 05/01/15 01:32 ALLERGIC TO NICOTINE PATCH/ RASH OVER ENTIRE BODY amoxicillin trihydrate Allergy Rash Verified 05/01/15 01:32 [From Augmentin] cephalexin monohydrate Allergy Rash Verified 05/01/15 01:32 [From Keflex] levofloxacin [From Levaquin] Allergy Itching Verified 04/17/20 01:25 Penicillins Allergy Rash Verified 05/01/15 01:32 potassium clavulanate Allergy Rash Verified 05/01/15 01:32 [From Augmentin] ED Review of Systems ROS: Stated complaint: COPD Other details as noted in HPI Constitutional: malaise. denies: fever Eyes: denies: eye discharge ENT: congestion Respiratory: cough, shortness of breath, SOB with exertion, SOB at rest, wheezing Cardiovascular: denies: chest pain Gastrointestinal: abdominal pain, constipation Genitourinary: denies: dysuria Musculoskeletal: denies: back pain Skin: as per HPI Neurological: as per HPI, weakness (Chronic) Psychiatric: as per HPI Hematological/Lymphatic: as per HPI ED Past Medical Hx - Past Medical History Hx Hypertension: Yes Hx CVA: Yes (2012 no deficits) Hx Heart Attack/AMI: Yes Hx Congestive Heart Failure: Yes Hx Diabetes: Yes Hx Deep Vein Thrombosis: No Hx Pulmonary Embolism: Yes Hx GERD: No Hx Liver Disease: No Hx Renal Disease: No Hx Sickle Cell Disease: No Hx Arthritis: Yes Hx Headaches / Migraines: No Hx Seizures: No Hx Kidney Stones: No Hx Psychiatric Treatment: No Hx Asthma: No Hx COPD: Yes (Dx 2009) Hx Tuberculosis: No Hx Dementia: No Hx HIV: No Additional medical history: high cholesterol - Surgical History Hx Pacemaker: No Hx Internal Defibrillator: No Hx Cholecystectomy: Yes Hx Appendectomy: Yes Additional Surgical History: tonsiLlectomy. HYSTERECTOMY - Social History Smoking Status: Former Smoker Substance Use Type: None - Medications Home Medications: Home Medications Medication Instructions Recorded Confirmed Last Taken Type Calcium Carbonate [Oscal 1250MG 1,250 mg PO BID 06/27/14 04/16/20 04/16/20 History TAB] Cholecalciferol (Vitamin D3) 1,000 unit PO QDAY 09/29/14 04/16/20 04/21/20 History [Vitamin D3] Dorzolamide/Timolol(Nf) 2-0.5% 1 drops OP BID 09/29/14 04/16/20 04/16/20 History [Cosopt (Nf)] Multivitamin [Multi-Vitamin Daily] 1 each PO QDAY 09/29/14 04/16/20 1 Day Ago History ~04/20/20 Budesoni/Formoterol 80-4.5(Nf) 2 puff IH BID #1 container 03/03/16 04/16/20 04/16/20 Rx [Symbicort 80-4.5 (Nf)] Zolpidem [Ambien] 5 mg PO QHS PRN #7 tablet 03/03/16 04/21/20 04/16/20 Rx Aspirin EC [Halfprin EC] 81 mg PO QDAY #30 tablet 03/09/17 04/16/20 04/21/20 Rx AtorvaSTATin [Lipitor] 40 mg PO QHS #30 tablet 03/09/17 04/16/20 04/16/20 Rx Clopidogrel [Plavix] 75 mg PO QDAY #30 tablet 03/09/17 04/16/20 04/21/20 Rx Famotidine [Pepcid] 10 mg PO BID #60 tablet 03/09/17 04/16/20 04/16/20 Rx LORazepam [Ativan] 1 mg PO Q12HR #60 tablet 03/09/17 04/16/20 04/16/20 Rx Metoprolol [Lopressor TAB] 25 mg PO BID #60 tablet 03/09/17 04/21/20 04/21/20 Rx OLANzapine [ZyPREXA] 15 mg PO QHS #30 tablet 03/09/17 04/16/20 04/16/20 Rx carBAMazepine XR [TEGretol Xr] 200 mg PO BID #60 tablet 03/09/17 04/21/20 04/16/20 Rx traZODone [Desyrel] 50 mg PO QHS 04/16/20 04/16/20 04/21/20 History Docusate Sodium [Colace CAP] 100 mg PO BID #60 capsule 04/22/20 Unknown Rx Polyethylene Glycol 3350 [Miralax] 119 gm PO DAILY #30 powder 04/22/20 Unknown Rx bisacodyL [Dulcolax suppos] 10 mg AL QDAY #10 supp.rect 04/22/20 Unknown Rx ED Physical Exam - General Limitations: No Limitations General appearance: alert, anxious - Head Head exam: Present: atraumatic, normocephalic - Eye Eye exam: Present: normal appearance, EOMI. Absent: nystagmus - ENT ENT exam: Present: normal exam, normal orophraynx, mucous membranes moist, normal external ear exam - Neck Neck exam: Present: normal inspection, full ROM. Absent: tenderness, meningismus - Respiratory Respiratory exam: Present: wheezes, rhonchi. Absent: respiratory distress, ral es, stridor - Cardiovascular Cardiovascular Exam: Present: regular rate, normal rhythm, normal heart sounds. Absent: bradycardia, tachycardia, irregular rhythm, systolic murmur, diastolic murmur, rubs, gallop - GI/Abdominal GI/Abdominal exam: Present: soft, normal bowel sounds. Absent: distended, tenderness, guarding, rebound, rigid, pulsatile mass - Extremities Exam Extremities exam: Present: normal inspection, full ROM, other (2+ pulses noted in the bilateral upper and lower extremities. There is no palpable cord. negative Homans sign. Muscular compartments are soft. The pelvis is stable.). Absent: pedal edema, calf tenderness - Back Exam Back exam: Present: normal inspection, full ROM. Absent: tenderness, CVA tenderness (R), CVA tenderness (L), paraspinal tenderness, vertebral tenderness - Neurological Exam Neurological exam: Present: alert, oriented X3, other (No facial droop. Tongue midline. Extraocular movements intact bilaterally. Facial sensation intact to light touch in V1, V2, V3 distribution bilaterally. 5 and a 5 strength in 4 extremities. Sensation intact to light touch in 4 extremities.). Absent: motor sensory deficit - Psychiatric Psychiatric exam: Present: flat affect - Skin Skin exam: Present: warm, dry, intact, normal color. Absent: rash ED Course Vital Signs 04/21/20 04/21/20 04/21/20 10:02 10:08 10:14 Temperature 97.6 F Pulse Rate 60 Respiratory 20 20 Rate Blood Pressure 167/88 167/88 Blood Pressure [Left] O2 Sat by Pulse 96 95 Oximetry 04/21/20 04/21/20 04/21/20 10:16 10:30 10:52 Temperature Pulse Rate 60 69 65 Respiratory 17 16 Rate Blood Pressure 167/88 168/94 Blood Pressure [Left] O2 Sat by Pulse 93 96 Oximetry 04/21/20 04/21/20 04/21/20 11:00 11:16 11:30 Temperature Pulse Rate 64 70 64 Respiratory 22 24 16 Rate Blood Pressure 159/91 159/91 169/90 Blood Pressure [Left] O2 Sat by Pulse 97 99 100 Oximetry 04/21/20 04/21/20 04/21/20 11:46 11:58 12:00 Temperature Pulse Rate 63 63 59 L Respiratory 21 20 20 Rate Blood Pressure 159/91 136/101 Blood Pressure 159/91 [Left] O2 Sat by Pulse 96 98 97 Oximetry 04/21/20 04/21/20 04/21/20 12:32 12:46 13:00 Temperature Pulse Rate 61 64 Respiratory 24 18 Rate Blood Pressure 136/101 136/101 117/66 Blood Pressure [Left] O2 Sat by Pulse 98 98 96 Oximetry 04/21/20 04/21/20 04/21/20 13:16 13:30 13:46 Temperature Pulse Rate 68 68 67 Respiratory 23 14 21 Rate Blood Pressure 136/101 159/83 159/83 Blood Pressure [Left] O2 Sat by Pulse 98 98 94 Oximetry 04/21/20 04/21/20 04/21/20 14:00 14:30 14:32 Temperature Pulse Rate 65 67 67 Respiratory 19 22 18 Rate Blood Pressure 151/79 137/71 Blood Pressure 137/71 [Left] O2 Sat by Pulse 96 97 96 Oximetry 04/21/20 04/21/20 04/21/20 15:00 15:30 15:40 Temperature Pulse Rate 70 74 76 Respiratory 18 20 19 Rate Blood Pressure 147/82 149/84 149/84 Blood Pressure [Left] O2 Sat by Pulse 96 97 97 Oximetry 04/21/20 04/21/20 04/21/20 15:50 16:00 16:10 Temperature Pulse Rate 77 75 77 Respiratory 24 22 12 Rate Blood Pressure 149/84 137/74 137/74 Blood Pressure [Left] O2 Sat by Pulse 97 96 95 Oximetry 04/21/20 04/21/20 04/21/20 16:20 16:30 16:40 Temperature Pulse Rate 73 78 73 Respiratory 21 21 19 Rate Blood Pressure 137/74 153/77 153/77 Blood Pressure [Left] O2 Sat by Pulse 96 96 97 Oximetry 04/21/20 04/21/20 04/21/20 16:50 17:00 17:10 Temperature Pulse Rate 75 77 82 Respiratory 11 L 18 20 Rate Blood Pressure 153/77 169/85 169/85 Blood Pressure [Left] O2 Sat by Pulse 95 99 99 Oximetry 04/21/20 04/21/20 17:20 17:45 Temperature 97.5 F L Pulse Rate 80 85 Respiratory 16 18 Rate Blood Pressure 169/85 162/88 Blood Pressure [Left] O2 Sat by Pulse 99 94 Oximetry - Reevaluation(s) Reevaluation #1: 04/21/20 11:12 Differential diagnosis, including but not limited to: Bronchitis, pneumonia, COPD exacerbation, constipation, urinary tract infection, pulmonary embolism, obstruction, acute coronary syndrome Assessment and plan: 79-year-old female who was discharged within the past 24 hours with COPD exacerbation, likely presenting with improving COPD exacerbation, and abdominal pain, likely secondary to constipation. In the emergency room, she is afebrile, with reassuring vital signs and does not appear to be in any significant distress. She is actively wheezing. Given advanced age, complaint of abdominal pain, CT scan of the abdomen pelvis will be obtained to exclude obstruction. X-ray of the chest unremarkable. Her EKG today is unchanged from prior EKG. Urinalysis pending at this time. Advanced age and cardiovascular risk factor profile are reviewed and appreciated, however, given the history and physical examination, I think acute coronary syndrome is unlikely. Patient will be given acetaminophen for pain, we will check EKG x2, troponin x2, and a d-dimer, as the patient was recently admitted to this hospital. However, given that she is not currently tachycardic, tachypneic or significantly hypoxic at this time, I do find her to be low pretest probability for pulmonary embolism. Reevaluation #2: 04/21/20 11:59 CT scan shows left-sided colitis. This involves the splenic flexure, descending colon and sigmoid. Morphine is ordered for pain. Troponin negative x1. X-ray the chest unremarkable. D-dimer elevated, nuclear medicine study is pending, as we are not able to establish 20-gauge IV access at this time. Patient does not meet criteria for central venous access at this time, as she has appropriate blood pressure. However, she does meet criteria for hospitalization, given her advanced age, multiple current issues, including recurrent COPD, left-sided colitis with leukocytosis. Uncertain if leukocytosis is secondary to stress reaction, steroid burst, pain, or colitis. There is no abdominal tenderness and she is hemodynamically stable, so I think ischemic gut is unlikely. A case was presented to the hospital physician, Dr. Gant, who will assume care of the patient. 04/21/20 12:01 Discussed plan of care with the patient, who verbalized understanding, and who is amenable to this plan of care at this time. 04/21/20 13:44 nuclear medicine study is low probability for pulmonary embolism. ED Medical Decision Making - Lab Data Result diagrams: 04/23/20 04:32 04/23/20 04:32 - EKG Data -: EKG Interpreted by Ia - EKG Data 04/21/20 11:07 The EKG today shows a sinus rhythm, 64 bpm, normal axis, normal intervals, poor R wave progression, borderline atrial enlargement, borderline high left ventricular voltage. This EKG is abnormal, it is not a STEMI. The EKG today appears to be unchanged from prior EKG from 06 March 2017. - Radiology Data Radiology results: report reviewed, image reviewed Print Report Referring Physician: SANDER CALL Patient Name: GAYATRI PETERSON Date of : 1940 Sex: Female Report Date: 2020-04-21 Report Status: Finalized Findings [address] [address] XRay Report Signed Patient: GAYATRI PETERSON MR#: [id number] : 1940 Acct:[id number] Age/Sex: 79 / F ADM Date: 04/21/20 Loc: ED Attending Dr: Ordering Physician: SANDER CALL MD Date of Service: 04/21/20 Procedure(s): XR chest 1V ap Accession Number(s): [id number] cc: SANDER CALL MD Fluoro Time In Minutes: CHEST 1 VIEW 04/21/2020 9:46 AM INDICATION / CLINICAL INFORMATION: dyspnea. COMPARISON: 04/16/2020 FINDINGS: SUPPORT DEVICES: None. HEART / MEDIASTINUM: Normal heart size. Atherosclerosis in the thoracic aorta. LUNGS / PLEURA: No significant pulmonary or pleural abnormality. No pneumothorax. ADDITIONAL FINDINGS: No significant additional findings. IMPRESSION: 1. No acute findings. Signer Name: Arsalan Holder MD Signed: 04/21/2020 10:51 AM Workstation Name: [id number] Transcribed By: CARINA Dictated By: Arsalan Holder MD Electronically Authenticated By: Arsalan Holder MD Signed Date/Time: 04/21/20 105 DD/ 50 TD/TT: Print Report Referring Physician: SANDER CALL Patient Name: GAYATRI PETERSON Date of : 1940 Sex: Female Report Date: 2020-04-21 Report Status: [place] [address] Cat Scan Report Signed Patient: GAYATRI PETERSON MR#: [id number] : 1940 Acct:[id number] Age/Sex: 79 / F ADM Date: 04/21/20 Loc: ED Attending Dr: Ordering Physician: SANDER CALL MD Date of Service: 04/21/20 Procedure(s): CT abdomen pelvis wo con Accession Number(s): [id number] cc: SANDER CALL MD CT abdomen pelvis wo con INDICATION: Left-sided abdominal pain.. TECHNIQUE: All CT scans at this location are performed using the following dose modulation technique: Automated exposure control. CONTRAST: None. COMPARISON: None available. CT ABDOMEN: The parenchymal organs are unremarkable in appearance. Status post previous cholecystectomy. Negative for biliary dilatation. Thickening involves the splenic flexure, descending colon and sigmoid colon. Scattered noninflamed diverticula are greatest at the sigmoid colon. Negative for abdominal mass, fluid collection or adenopathy. The aorta contains mild atherosclerotic calcification. CT PELVIS: Status post previous hysterectomy and screw placement at the right hip. Colonic stool is moderate. IMPRESSION: 1. Left-sided colitis. The distribution can be seen with ischemia. 2. Noninflamed colonic diverticulosis. 3. Moderate colonic stool. Signer Name: Joey Jackson MD Signed: 04/21/2020 11:18 AM Workstation Name: [id number] Transcribed By: ES Dictated By: Joey Jackson MD Electronically Authenticated By: Joey Jackson MD Signed Date/Time: 04/21/201117 DD/ 13 TD/TT: Critical Care Time: Yes Critical care time in (mins) excluding proc time.: 35 Critical care attestation.: If time is entered above; I have spent that time in minutes in the direct care of this critically ill patient, excluding procedure time. ED Disposition Clinical Impression: Acute abdominal pain, Colitis, COPD with exacerbation Disposition: OP ADMIT IP TO THIS HOSP Is pt being admited?: Yes Does the pt Need Aspirin: No Condition: Serious
[2020-04-21] MEDS ORDERED: MAGNESIUM SULFATE 2 GM/50 ML BAG IV ONE (10:25)
--- NOTE | 2020-04-21 10:55 | XRay Report ---
CHEST 1 VIEW 04/21/2020 9:46 AM INDICATION / CLINICAL INFORMATION: dyspnea. COMPARISON: 04/16/2020 FINDINGS: SUPPORT DEVICES: None. HEART / MEDIASTINUM: Normal heart size. Atherosclerosis in the thoracic aorta. LUNGS / PLEURA: No significant pulmonary or pleural abnormality. No pneumothorax. ADDITIONAL FINDINGS: No significant additional findings. IMPRESSION: 1. No acute findings. Signer Name: Arsalan Holder MD Signed: 04/21/2020 10:51 AM Workstation Name: [id number]
[2020-04-21 11:22] LABS: Basophils % (Auto) 0.1 % (0.0-1.8); Eosinophils % (Auto) 0.2 % (0.0-4.3); Hematocrit 39.4 % (30.3-42.9); Hemoglobin 13.2 gm/dl (10.1-14.3); Lymphocytes # (Auto) 2.9 K/mm3 (1.2-5.4); Mean Corpuscular HGB Conc 34 % (30-34); Mean Corpuscular Volume 94 fl (79-97); Monocytes # (Auto) 1.6 K/mm3 (0.0-0.8); Monocytes % (Auto) 8.2 % (0.0-7.3); Platelet Count 320 K/mm3 (140-440); Red Blood Count 4.21 M/mm3 (3.65-5.03); Red Cell Distribution Width 13.3 % (13.2-15.2)
--- NOTE | 2020-04-21 11:23 | Cat Scan Report ---
CT abdomen pelvis wo con INDICATION: Left-sided abdominal pain.. TECHNIQUE: All CT scans at this location are performed using the following dose modulation technique: Automated exposure control. CONTRAST: None. COMPARISON: None available. CT ABDOMEN: The parenchymal organs are unremarkable in appearance. Status post previous cholecystecto my. Negative for biliary dilatation. Thickening involves the splenic flexure, descending colon and sigmoid colon. Scattered noninflamed di verticula are greatest at the sigmoid colon. Negative for abdominal mass, fluid collection or adenopathy. The aorta contains mild atherosclerotic calcification. CT PELVIS: Status post previous hysterectomy and screw placement at the right hip. Colonic stool is m oderate. IMPRESSION: 1. Left-sided colitis. The distribution can be seen with ischemia. 2. Noninflamed colonic diverticulosis. 3. Moderate colonic stool. Signer Name: Joey Jackson MD Signed: 04/21/2020 11:18 AM Workstation Name: [id number]
[2020-04-21] MEDS ORDERED: metroNIDAZOLE/NS 500 MG/100 ML 500 MG/100 ML BAG IV ONE (11:30)
[2020-04-21] MEDS ORDERED: MORPHINE 4 MG/1 ML INJ IV ONE (11:30)
[2020-04-21 11:35] LABS: INR 0.92 (0.87-1.13)
[2020-04-21 11:48] LABS: Bilirubin,Urine NEG (Negative); Blood,Urine NEG (Negative); Color,Urine Yellow (Yellow); Mucus,Urine FEW /HPF; Protein,Urine <15 mg/dL mg/dL (Negative); Urobilinogen,Urine < 2.0 mg/dL (<2.0)
[2020-04-21 11:55] LABS: Alanine Aminotransferase 35 units/L (7-56); Albumin 3.9 g/dL (3.9-5); BUN/Creatinine Ratio 23; Blood Urea Nitrogen 18 mg/dL (7-17); Calcium 9.3 mg/dL (8.4-10.2); Hemolysis Index 5
--- NOTE | 2020-04-21 12:03 | History and Physical Report ---
History of Present Illness Chief complaint: My stomach started hurting this morning History of present illness: 79 YO Female with HTN, COPD,CVA on DAPT,OA,HLD, CHF, DM, HLD, PE not currently on therapeutic anticoagulation presents to ED for evaluation. Pt was discharged home on 04/20/2020 after treatment for COPD exacerbation. Patient represents today with a new presenting symptom of abdominal pain. Patient states that she experienced sudden onset of pain in her abdomen shortly after awakening from sleep this morning at 0700 hrs. Patient states that pain is 9/10, constant, periumbilical in location, without exacerbating or alleviating factors. EMS notified and upon arrival the patient was found to be in distress and subsequently transported to [facility] for further care and evaluation. Patient seen and evaluated in the emergency department. Lab and imaging studies reviewed. Patient underwent CT scan of the abdomen and pelvis which showed diffuse thickening of the left colon beginning at the splenic flexure and descending down to the rectum. Patient clinical symptoms combined with CT scan findings possibly consistent with ischemic colitis. Patient found to have constipation as well. Surgical team consulted in ED. Patient placed in observation status and admitted to medical floor. Patient denies fever, chills, chest pain, palpitations, productive cough, shortness of breath, bright red blood per rectum, ingestion of food/water from new or different sources, trauma, or known ill contacts. Prior admission on 04/18/2020 reviewed. All medication listed at time of admission have been reconciled. Advanced care planning conducted in the emergency department. Past History Past Medical History: arthritis, diabetes, heart failure, hypertension, hyperlipidemia, other (See HPI) Past Surgical History: appendectomy, cholecystectomy, hysterectomy, tonsillectomy Social history: , Lives alone. denies: smoking, alcohol abuse, prescription drug abuse Family history: diabetes, hypertension Medications and Allergies Allergies Allergy/AdvReac Type Severity Reaction Status Date / Time nicotine Allergy Severe PT Verified 05/01/15 01:32 ALLERGIC TO NICOTINE PATCH/ RASH OVER ENTIRE BODY amoxicillin trihydrate Allergy Rash Verified 05/01/15 01:32 [From Augmentin] cephalexin monohydrate Allergy Rash Verified 05/01/15 01:32 [From Keflex] levofloxacin [From Levaquin] Allergy Itching Verified 04/17/20 01:25 Penicillins Allergy Rash Verified 05/01/15 01:32 potassium clavulanate Allergy Rash Verified 05/01/15 01:32 [From Augmentin] Home Medications Medication Instructions Recorded Confirmed Last Taken Type Calcium Carbonate [Oscal 1250MG 1,250 mg PO BID 06/27/14 04/16/20 04/16/20 History TAB] Cholecalciferol (Vitamin D3) 1,000 unit PO QDAY 09/29/14 04/16/20 04/21/20 History [Vitamin D3] Dorzolamide/Timolol(Nf) 2-0.5% 1 drops OP BID 09/29/14 04/16/20 04/16/20 History [Cosopt (Nf)] Multivitamin [Multi-Vitamin Daily] 1 each PO QDAY 09/29/14 04/16/20 1 Day Ago History ~04/20/20 Budesoni/Formoterol 80-4.5(Nf) 2 puff IH BID #1 container 03/03/16 04/16/20 04/16/20 Rx [Symbicort 80-4.5 (Nf)] Zolpidem [Ambien] 5 mg PO QHS PRN #7 tablet 03/03/16 04/21/20 04/16/20 Rx Aspirin EC [Halfprin EC] 81 mg PO QDAY #30 tablet 03/09/17 04/16/20 04/21/20 Rx AtorvaSTATin [Lipitor] 40 mg PO QHS #30 tablet 03/09/17 04/16/20 04/16/20 Rx Clopidogrel [Plavix] 75 mg PO QDAY #30 tablet 03/09/17 04/16/20 04/21/20 Rx Docusate Sodium [Colace CAP] 100 mg PO BID PRN #30 capsule 03/09/17 04/16/20 04/16/20 Rx Famotidine [Pepcid] 10 mg PO BID #60 tablet 03/09/17 04/16/20 04/16/20 Rx LORazepam [Ativan] 1 mg PO Q12HR #60 tablet 03/09/17 04/16/20 04/16/20 Rx Metoprolol [Lopressor TAB] 25 mg PO BID #60 tablet 03/09/17 04/21/20 04/21/20 Rx OLANzapine [ZyPREXA] 15 mg PO QHS #30 tablet 03/09/17 04/16/20 04/16/20 Rx carBAMazepine XR [TEGretol Xr] 200 mg PO BID #60 tablet 03/09/17 04/21/20 04/16/20 Rx traZODone [Desyrel] 50 mg PO QHS 04/16/20 04/16/20 04/21/20 History Active Meds: Active Medications Levofloxacin/Dextrose (Levaquin 500mg/100ml) 500 mg in 100 mls @ 100 mls/hr IV ONCE ONE; Protocol Stop: 04/21/20 12:29 Review of Systems Constitutional: no weight loss, no weight gain, no fever, no chills Ears, nose, mouth and throat: no ear pain, no ear discharge, no tinnitis, no de creased hearing, no nose pain Breasts: no change in shape, no swelling, no mass Cardiovascular: no chest pain, no orthopnea, no palpitations, no rapid/irregular heart beat, no edema Respiratory: no cough, no cough with sputum, no excessive sputum, no hemoptysis Gastrointestinal: abdominal pain, no nausea, no vomiting, no diarrhea, no coffee ground emesis, no BRBPR, no melena, no hematochezia Genitourinary Female: no pelvic pain, no flank pain, no menorrhagia, no dysuria, no urinary frequency Rectal: no pain, no incontinence, no bleeding Musculoskeletal: no neck stiffness, no neck pain, no shooting arm pain, no low back pain, no shooting leg pain, no leg numbness/tingling Integumentary: no rash, no pruritis, no redness, no sores, no wounds Neurological: no head injury, no transient paralysis, no paralysis, no weakness, no parathesias, no numbness, no seizures Psychiatric: no anxiety, no memory loss, no insomnia, no change in appetite, no suicidal ideation Endocrine: no cold intolerance, no heat intolerance, no excessive thirst, no polyuria, no nocturia Hematologic/Lymphatic: no easy bruising, no easy bleeding Allergic/Immunologic: no urticaria, no allergic rhinitis Exam - Constitutional Vitals: Temp Pulse Resp BP Pulse Ox 97.6 F 63 20 159/91 98 04/21/20 10:08 04/21/20 11:58 04/21/20 11:58 04/21/20 11:58 04/21/20 11:58 General appearance: Present: mild distress - EENT Eyes: Present: PERRL ENT: hearing intact, clear oral mucosa - Neck Neck: Present: supple, normal ROM - Respiratory Respiratory effort: normal Respiratory: bilateral: CTA - Cardiovascular Heart Sounds: Present: S1 & S2. Absent: rub, click - Extremities Extremities: pulses symmetrical, No edema Peripheral Pulses: within normal limits - Abdominal General gastrointestinal: Present: soft, non-tender, tender, normal bowel sounds. Absent: rigid, hepatomegaly, splenomegaly, mass, hernia Localized gastrointestinal: tender: epigastric periumbilical Female genitourinary: Present: normal - Rectal Rectal Exam: normal exam-external/orifice, normal rectal tone - Integumentary Integumentary: Present: clear, warm, dry - Musculoskeletal Musculoskeletal: gait normal, strength equal bilaterally - Psychiatric Psychiatric: appropriate mood/affect, intact judgment & insight - Neurologic Neurologic: CNII-XII intact, moves all extremities HEART Score - HEART Score Troponin: Troponin T < 0.010 ng/mL (0.00-0.029) 04/21/20 10:53 Results - Labs CBC & Chem 7: 04/21/20 10:53 04/21/20 10:53 Labs: Abnormal lab results 04/21/20 04/21/20 04/21/20 Range/Units 10:53 10:53 10:53 WBC (4.5-11.0) K/mm3 [place] % (Auto) (0.0-7.3) % [place] # (0.0-0.8) K/mm3 Seg Neutrophils % (40.0-70.0) % Seg Neutrophils # (1.8-7.7) K/mm3 D-Dimer 1095.55 H (0-234) ng/mlDDU Sodium 131 L (137-145) mmol/L Chloride 95.8 L (98-107) mmol/L BUN 18 H (7-17) mg/dL Glucose 185 H (65-100) mg/dL Magnesium 3.20 H (1.7-2.3) mg/dL Total Protein 5.7 L (6.3-8.2) g/dL 04/21/20 Range/Units 10:53 WBC 19.3 H (4.5-11.0) K/mm3 [place] % (Auto) 8.2 H (0.0-7.3) % [place] # 1.6 H (0.0-0.8) K/mm3 Seg Neutrophils % 76.5 H (40.0-70.0) % Seg Neutrophils # 14.8 H (1.8-7.7) K/mm3 D-Dimer (0-234) ng/mlDDU Sodium (137-145) mmol/L Chloride (98-107) mmol/L BUN (7-17) mg/dL Glucose (65-100) mg/dL Magnesium (1.7-2.3) mg/dL Total Protein (6.3-8.2) g/dL Assessment and Plan - Patient Problems (1) Ischemic bowel disease Current Visit: Yes Status: Acute Plan to address problem: CT scan abdomen and pelvis, CTA abdomen and pelvis ordered and pending at time of admission, surgery team consulted, serial lactic acid level, IV fluid resuscitation therapy, bowel rest, serial abdominal exam. (2) Acute abdominal pain Current Visit: Yes Status: Acute Plan to address problem: CT scan abdomen and pelvis, supportive care, pain control, stool Hemoccult, serial abdominal exam, serial lactic acid level. (3) SIRS (systemic inflammatory response syndrome) Current Visit: Yes Status: Acute Plan to address problem: Supportive care, empiric IV antibiotic therapy. Suspect leukocytosis secondary to demargination with chronic steroid therapy. CBC, CMP, urinalysis, chest x- ray, supportive care. Repeat CBC in a.m. (4) HTN (hypertension) Current Visit: Yes Status: Acute Qualifiers: Hypertension type: essential hypertension Qualified Code(s): I10 - Essential (primary) hypertension Plan to address problem: Monitor blood pressure every shift, continue medical management. (5) HLD (hyperlipidemia) Current Visit: Yes Status: Acute Qualifiers: Hyperlipidemia type: mixed hyperlipidemia Qualified Code(s): E78.2 - Mixed hyperlipidemia Plan to address problem: Balanced diet, statin therapy as clinically indicated. Low-fat/low-cholesterol diet. (6) COPD (chronic obstructive pulmonary disease) Current Visit: Yes Status: Acute Qualifiers: COPD type: emphysema Plan to address problem: Submental oxygen, pulse oximetry, nebulizer therapy, supportive care. No acute exacerbation at this time (7) CHF (congestive heart failure) Current Visit: Yes Status: Chronic Plan to address problem: Compensated, strict I's/O, daily weight, monitor urine output every shift, afterload reduction, blood pressure control. No acute exacerbation of systolic or diastolic heart failure at this time (8) Constipation Current Visit: Yes Status: Acute Qualifiers: Constipation type: unspecified constipation type Qualified Code(s): K59.00 - Constipation, unspecified Plan to address problem: Bowel regimen, supportive care, Fleet enema daily until bowel movement. (9) DVT prophylaxis Current Visit: Yes Status: Acute Plan to address problem: SCD to bilateral lower extremities while in bed, patient is ambulatory. (10) Advance care planning Current Visit: Yes Status: Acute Plan to address problem: Disease education conducted, patient is full code, patient acknowledges understanding and agreement with care plan, +30 minutes.
--- NOTE | 2020-04-21 12:44 | Nuclear Medicine Report ---
NUCLEAR MEDICINE PERFUSION LUNG SCAN INDICATION: dyspnea + d dimer. TECHNIQUE: 5 mCi of Tc-99m MAA were given by IV. COMPARISON: Chest radiograph dated today. FINDINGS: PERFUSION: No significant perfusion defects. ADDITIONAL FINDINGS: None. IMPRESSION: 1. Low probability for pulmonary embolism. Signer Name: Brandon Glaser MD Signed: 04/21/2020 12:39 PM Workstation Name: [facility]
[2020-04-21] MEDS ORDERED: ACETAMINOPHEN 325 MG TAB PO PRN (13:20)
[2020-04-21] MEDS ORDERED: ONDANSETRON 4 MG/2 ML INJ IV PRN (13:20)
[2020-04-21] MEDS ORDERED: FLEET ENEMA PR ONE ×2 (13:23→20:07)
[2020-04-21] MEDS ORDERED: SENNOSIDES/DOCUSATE SODIUM 8.6/50 MG TAB PO PRN (13:23)
[2020-04-21] MEDS ORDERED: ZOLPIDEM 5 MG TAB PO PRN (13:24)
--- NOTE | 2020-04-21 13:57 | Consultation ---
History of Present Illness Consult date: 04/21/20 Reason for consult: abdominal pain Requesting physician: ZOE NAVARRETE Chief complaint: crampy abdominal pain - History of present illness History of present illness: 79 yo F who was recently discharged from the hospital for difficulty breathing returns with increased shortness of breath. She reported to the ER team that she was also having abdominal pain. The pain started this morning at 7am. CT scan was ordered and the official report stated that the changes that were seen could be signs of ischemic colitis. General surgery was asked to consult. Patient reports she has a long history of constipation. She normally has a bowel movement every 4 to 5 days. She has to strain to have a bowel movement. She only takes 2 Colace tablets daily to help with her bowel movements. She has not had a bowel movement in over a week. The last time she had one was before she was admitted recently. She has had abdominal pain in the past when she has not had a bowel movement in a while. However, she can not remember if that pain was similar to the one today. She denies fevers or chills. Reports nausea but no vomiting. Has been passing gas. Past History Past Medical History: acute NH, arthritis, CAD, COPD, diabetes, heart failure, hypertension, hyperlipidemia, pulmonary embolism, stroke Past Surgical History: appendectomy (open), cholecystectomy (laparoscopic), hysterectomy (open) Social history: denies: smoking, alcohol abuse Family history: no significant family history Medications and Allergies Allergies Allergy/AdvReac Type Severity Reaction Status Date / Time nicotine Allergy Severe PT Verified 05/01/15 01:32 ALLERGIC TO NICOTINE PATCH/ RASH OVER ENTIRE BODY amoxicillin trihydrate Allergy Rash Verified 05/01/15 01:32 [From Augmentin] cephalexin monohydrate Allergy Rash Verified 05/01/15 01:32 [From Keflex] levofloxacin [From Levaquin] Allergy Itching Verified 04/17/20 01:25 Penicillins Allergy Rash Verified 05/01/15 01:32 potassium clavulanate Allergy Rash Verified 05/01/15 01:32 [From Augmentin] Home Medications Medication Instructions Recorded Confirmed Last Taken Type Calcium Carbonate [Oscal 1250MG 1,250 mg PO BID 06/27/14 04/16/20 04/16/20 History TAB] Cholecalciferol (Vitamin D3) 1,000 unit PO QDAY 09/29/14 04/16/20 04/21/20 History [Vitamin D3] Dorzolamide/Timolol(Nf) 2-0.5% 1 drops OP BID 09/29/14 04/16/20 04/16/20 History [Cosopt (Nf)] Multivitamin [Multi-Vitamin Daily] 1 each PO QDAY 09/29/14 04/16/20 1 Day Ago History ~04/20/20 Budesoni/Formoterol 80-4.5(Nf) 2 puff IH BID #1 container 03/03/16 04/16/20 04/16/20 Rx [Symbicort 80-4.5 (Nf)] Zolpidem [Ambien] 5 mg PO QHS PRN #7 tablet 03/03/16 04/21/20 04/16/20 Rx Aspirin EC [Halfprin EC] 81 mg PO QDAY #30 tablet 03/09/17 04/16/20 04/21/20 Rx AtorvaSTATin [Lipitor] 40 mg PO QHS #30 tablet 03/09/17 04/16/20 04/16/20 Rx Clopidogrel [Plavix] 75 mg PO QDAY #30 tablet 03/09/17 04/16/20 04/21/20 Rx Docusate Sodium [Colace CAP] 100 mg PO BID PRN #30 capsule 03/09/17 04/16/20 04/16/20 Rx Famotidine [Pepcid] 10 mg PO BID #60 tablet 03/09/17 04/16/20 04/16/20 Rx LORazepam [Ativan] 1 mg PO Q12HR #60 tablet 03/09/17 04/16/20 04/16/20 Rx Metoprolol [Lopressor TAB] 25 mg PO BID #60 tablet 03/09/17 04/21/20 04/21/20 Rx OLANzapine [ZyPREXA] 15 mg PO QHS #30 tablet 03/09/17 04/16/20 04/16/20 Rx carBAMazepine XR [TEGretol Xr] 200 mg PO BID #60 tablet 03/09/17 04/21/20 04/16/20 Rx traZODone [Desyrel] 50 mg PO QHS 04/16/20 04/16/20 04/21/20 History Active Meds: Active Medications Acetaminophen (Tylenol) 650 mg PO Q4H PRN PRN Reason: Pain MILD(1-3)/Fever >100.5/HORNE Arformoterol Tartrate (Brovana Nebu) 15 mcg IH Q12HRT [facility] Aspirin (Halfprin Ec) 81 mg PO QDAY [facility] Atorvastatin Calcium (Lipitor) 40 mg PO QHS [facility] Budesonide (Pulmicort) 0.5 mg IH Q12HRT [facility] Calcium Carbonate/Glycine (Oscal) 1,250 mg PO BID [facility] Carbamazepine (Tegretol Xr) 200 mg PO BID [facility] Cholecalciferol (Vitamin D3) 1,000 unit PO DAILY [facility] Clopidogrel Bisulfate (Plavix) 75 mg PO QDAY [facility] Famotidine (Pepcid) 10 mg PO BID [facility] Lorazepam (Ativan) 1 mg PO Q12HR [facility] Metoprolol Tartrate (Metoprolol) 25 mg PO BID [facility] Miscellaneous Medication (Dorzolamide/Timolol(Nf) 2-0.5%) 1 drops OP BID [facility] Multivitamins/Minerals (Theragran-M Tab) 1 each PO QDAY [facility] Olanzapine (Zyprexa) 15 mg PO QHS [facility] Ondansetron HCl (Zofran) 4 mg IV Q8H PRN PRN Reason: Nausea And Vomiting Senna/Docusate Sodium (Senokot S) 2 tab PO Q12H PRN PRN Reason: Laxative Effect Sodium Chloride (Sodium Chloride Flush Syringe 10 Ml) 10 ml IV BID [facility] Sodium Chloride (Sodium Chloride Flush Syringe 10 Ml) 10 ml IV PRN PRN PRN Reason: LINE FLUSH Trazodone HCl (Desyrel) 50 mg PO QHS [facility] Zolpidem Tartrate (Ambien) 5 mg PO QHS PRN PRN Reason: Sleep Review of Systems - Constitutional no fever, no chills - Cardiovascular shortness of breath, no chest pain - Respiratory no cough - Gastrointestinal abdominal pain, nausea, constipation, change in bowel habits, dyspepsia/bloating, no vomiting - Genitourinary Genitourinary: no dysuria - Muskuloskeletal no low back pain - Integumentary no rash, no sores, no wounds Exam Vital Signs BP 167/88 04/21/20 10:02 - General physical appearance Positive: no distress, no pain, other (appears to be resting comfortably when I arrived. ) - Eyes Positive: normal occular movement - Respiratory Positive: normal expansion, normal respiratory effort - Cardiovascular Rhythm: regular - Abdomen Abdomen: Present: soft, bowel sounds hypoactive. Absent: tender, distended, guarding, rigid, wound - Integumentary no rash, no growths, no abnormal pigmentation - Neurologic Neurologic: alert and oriented to time, place and person - Psychiatric Psychiatric: appropriate mood/affect, intact judgment & insight, cooperative Results - Labs 04/21/20 10:53 04/21/20 10:53 Abnormal lab results 04/21/20 04/21/20 04/21/20 Range/Units 10:53 10:53 10:53 WBC (4.5-11.0) K/mm3 [place] % (Auto) (0.0-7.3) % [place] # (0.0-0.8) K/mm3 Seg Neutrophils % (40.0-70.0) % Seg Neutrophils # (1.8-7.7) K/mm3 D-Dimer 1095.55 H (0-234) ng/mlDDU Sodium 131 L (137-145) mmol/L Chloride 95.8 L (98-107) mmol/L BUN 18 H (7-17) mg/dL Glucose 185 H (65-100) mg/dL Magnesium 3.20 H (1.7-2.3) mg/dL Total Protein 5.7 L (6.3-8.2) g/dL 04/21/20 Range/Units 10:53 WBC 19.3 H (4.5-11.0) K/mm3 [place] % (Auto) 8.2 H (0.0-7.3) % [place] # 1.6 H (0.0-0.8) K/mm3 Seg Neutrophils % 76.5 H (40.0-70.0) % Seg Neutrophils # 14.8 H (1.8-7.7) K/mm3 D-Dimer (0-234) ng/mlDDU Sodium (137-145) mmol/L Chloride (98-107) mmol/L BUN (7-17) mg/dL Glucose (65-100) mg/dL Magnesium (1.7-2.3) mg/dL Total Protein (6.3-8.2) g/dL Diabetes panel 04/21/20 Range/Units 10:53 Sodium 131 L (137-145) mmol/L Potassium 4.1 (3.6-5.0) mmol/L Chloride 95.8 L (98-107) mmol/L Carbon Dioxide 22 (22-30) mmol/L BUN 18 H (7-17) mg/dL Creatinine 0.8 (0.7-1.2) mg/dL Glucose 185 H (65-100) mg/dL Calcium 9.3 (8.4-10.2) mg/dL AST 38 (5-40) units/L ALT 35 (7-56) units/L Alkaline Phosphatase 93 (35-129) units/L Total Protein 5.7 L (6.3-8.2) g/dL Albumin 3.9 (3.9-5) g/dL Calcium panel 04/21/20 Range/Units 10:53 Calcium 9.3 (8.4-10.2) mg/dL Albumin 3.9 (3.9-5) g/dL Pituitary panel 04/21/20 Range/Units 10:53 Sodium 131 L (137-145) mmol/L Potassium 4.1 (3.6-5.0) mmol/L Chloride 95.8 L (98-107) mmol/L Carbon Dioxide 22 (22-30) mmol/L BUN 18 H (7-17) mg/dL Creatinine 0.8 (0.7-1.2) mg/dL Glucose 185 H (65-100) mg/dL Calcium 9.3 (8.4-10.2) mg/dL Adrenal panel 04/21/20 Range/Units 10:53 Sodium 131 L (137-145) mmol/L Potassium 4.1 (3.6-5.0) mmol/L Chloride 95.8 L (98-107) mmol/L Carbon Dioxide 22 (22-30) mmol/L BUN 18 H (7-17) mg/dL Creatinine 0.8 (0.7-1.2) mg/dL Glucose 185 H (65-100) mg/dL Calcium 9.3 (8.4-10.2) mg/dL Total Bilirubin 0.30 (0.1-1.2) mg/dL AST 38 (5-40) units/L ALT 35 (7-56) units/L Alkaline Phosphatase 93 (35-129) units/L Total Protein 5.7 L (6.3-8.2) g/dL Albumin 3.9 (3.9-5) g/dL - Imaging CT scan - abdomen: report reviewed, image reviewed CT scan - pelvis: report reviewed, image reviewed Assessment and Plan - Patient Problems (1) Acute abdominal pain Current Visit: Yes Status: Acute Plan to address problem: Pt stable. Patient has a benign abdomen. This is not consistent with infectious or ischemic colitis. I do not agree with the official CT report as the differential diagnosis is based off of an inadequate CT. No contrast was used in this study. My guess is that her pain is related to severe constipation. I believe the best step at this point is to make sure that she is euvolemic and administer a soapsuds enema to clean out the rectosigmoid region. After that, a reassessment can be done with new labs and exam. I expect she will feel better after having a BM. Recommend: 1) 250cc soap suds enema - may repeat times 1 if no effect. 2) Should be on daily miralax at home. 3) Repeat labs in AM. We will follow along. Please call with any questions. Time=30min
[2020-04-21] MEDS ORDERED: LORazepam 1 MG TAB ONE (14:37)
[2020-04-21] MEDS ORDERED: LORazepam 1 MG TAB PO ONE (14:44)
[2020-04-21] MEDS: ARFORMOTEROL 15 MCG/2 ML NEBU IH SCH (20:43)
[2020-04-21] MEDS: BUDESONIDE 0.5 MG/2 ML NEBU IH SCH (20:43)
[2020-04-21] MEDS: LORazepam 1 MG TAB PO SCH (21:04)
[2020-04-21] MEDS: FAMOTIDINE 10 MG TAB PO SCH (21:05)
[2020-04-21] MEDS: CALCIUM CARBONATE 1250 MG TAB PO SCH (21:05)
[2020-04-21] MEDS: METOPROLOL TARTRATE 25 MG TAB PO SCH (21:05)
[2020-04-21] MEDS: traZODone 50 MG TAB PO SCH (21:05)
[2020-04-21] MEDS: carBAMazepine XR 200 MG TAB PO SCH (21:06)
[2020-04-21] MEDS ORDERED: BUDESONI IH SCH (22:00)
[2020-04-21] MEDS ORDERED: TIMOLOL OP SCH (22:00)
[2020-04-21] MEDS ORDERED: DORZOLAMIDE OP SCH (22:00)
[2020-04-21] MEDS ORDERED: FORMOTEROL IH SCH (22:00)
[2020-04-22] MEDS: ARFORMOTEROL 15 MCG/2 ML NEBU IH SCH ×2 (09:18→19:39)
[2020-04-22] MEDS: BUDESONIDE 0.5 MG/2 ML NEBU IH SCH ×2 (09:18→19:38)
[2020-04-22] MEDS: MULTIVITAMINS,THER W-MINERALS TAB PO SCH (09:44)
[2020-04-22] MEDS: CLOPIDOGREL 75 MG TAB PO SCH (09:44)
[2020-04-22] MEDS: CALCIUM CARBONATE 1250 MG TAB PO SCH ×2 (09:44→21:43)
[2020-04-22] MEDS: FAMOTIDINE 10 MG TAB PO SCH ×2 (09:44→21:42)
[2020-04-22] MEDS: ASPIRIN EC 81 MG TAB PO SCH (09:44)
[2020-04-22] MEDS: LORazepam 1 MG TAB PO SCH ×2 (09:44→21:42)
[2020-04-22] MEDS: carBAMazepine XR 200 MG TAB PO SCH ×2 (09:44→21:43)
[2020-04-22] MEDS: METOPROLOL TARTRATE 25 MG TAB PO SCH ×2 (09:44→21:50)
[2020-04-22] MEDS: CHOLECALCIFEROL (VIT D3) 1000 UNIT (25 mcg) TAB PO SCH (09:44)
[2020-04-22] MEDS ORDERED: MULTIVITAMIN PO SCH (10:00)
[2020-04-22] MEDS ORDERED: CHOLECALCIFEROL 1000 UNIT PO SCH (10:00)
--- NOTE | 2020-04-22 10:13 | Progress Note ---
Assessment and Plan - Patient Problems (1) Acute abdominal pain Current Visit: Yes Status: Acute Plan to address problem: Pt stable. Patient has a benign abdomen. This is not consistent with infectious or ischemic colitis. According to the records and the patient, she had a good bowel movement yesterday. Based on her report, it sounds like the pain is a little bit better. I recommended that we do the enema again. The pain will not resolve until all the stools cleaned out. I will also start her on MiraLAX today. I explained the rationale. She needs to continue this at home. She was wanting more pain medication. I explained to her that the narcotics only worsen the problem by contributing to her constipation. She acknowledged understanding. Recommend: 1) 250cc soap suds enema - may repeat times 1 if no effect. 2) Should be on daily miralax at home. Will start here 3) Diet as tolerated We will follow along. Please call with any questions. Time=10min Subjective Date of service: 04/22/20 Patient Reports: Positive: no new complaints, still having pain (slightly less today), tolerating liquids well, bowel movement, nausea Objective Vital Signs - 12hr 04/21/20 04/22/20 04/22/20 23:52 05:21 07:01 Temperature 97.8 F 98.9 F 98.9 F Pulse Rate 84 83 81 Respiratory 18 18 19 Rate Blood Pressure 129/68 134/73 138/75 O2 Sat by Pulse 94 94 98 Oximetry 04/22/20 09:44 Temperature Pulse Rate Respiratory Rate Blood Pressure 138/75 O2 Sat by Pulse Oximetry - General physical appearance no distress, no pain, other (looks better) - Respiratory normal expansion, normal respiratory effort - Abdomen soft, not tender, not distended, not guarding, not rigid - Integumentary no rash, no growths, no abnormal pigmentation - Psychiatric oriented to time, oriented to person, oriented to place, speech is normal, memory intact - Labs 04/21/20 10:53 04/21/20 10:53 Diabetes panel 04/21/20 Range/Units 10:53 Sodium 131 L (137-145) mmol/L Potassium 4.1 (3.6-5.0) mmol/L Chloride 95.8 L (98-107) mmol/L Carbon Dioxide 22 (22-30) mmol/L BUN 18 H (7-17) mg/dL Creatinine 0.8 (0.7-1.2) mg/dL Glucose 185 H (65-100) mg/dL Calcium 9.3 (8.4-10.2) mg/dL AST 38 (5-40) units/L ALT 35 (7-56) units/L Alkaline Phosphatase 93 (35-129) units/L Total Protein 5.7 L (6.3-8.2) g/dL Albumin 3.9 (3.9-5) g/dL Calcium panel 04/21/20 Range/Units 10:53 Calcium 9.3 (8.4-10.2) mg/dL Albumin 3.9 (3.9-5) g/dL Pituitary panel 04/21/20 Range/Units 10:53 Sodium 131 L (137-145) mmol/L Potassium 4.1 (3.6-5.0) mmol/L Chloride 95.8 L (98-107) mmol/L Carbon Dioxide 22 (22-30) mmol/L BUN 18 H (7-17) mg/dL Creatinine 0.8 (0.7-1.2) mg/dL Glucose 185 H (65-100) mg/dL Calcium 9.3 (8.4-10.2) mg/dL Adrenal panel 04/21/20 Range/Units 10:53 Sodium 131 L (137-145) mmol/L Potassium 4.1 (3.6-5.0) mmol/L Chloride 95.8 L (98-107) mmol/L Carbon Dioxide 22 (22-30) mmol/L BUN 18 H (7-17) mg/dL Creatinine 0.8 (0.7-1.2) mg/dL Glucose 185 H (65-100) mg/dL Calcium 9.3 (8.4-10.2) mg/dL Total Bilirubin 0.30 (0.1-1.2) mg/dL AST 38 (5-40) units/L ALT 35 (7-56) units/L Alkaline Phosphatase 93 (35-129) units/L Total Protein 5.7 L (6.3-8.2) g/dL Albumin 3.9 (3.9-5) g/dL
[2020-04-22 10:18] LABS: Basophils % (Auto) 0.1 % (0.0-1.8); Eosinophils % (Auto) 0.1 % (0.0-4.3); Lymphocytes # (Auto) 1.8 K/mm3 (1.2-5.4); Lymphocytes % (Auto) 13.3 % (13.4-35.0); Mean Corpuscular HGB Conc 36 % (30-34); Mean Corpuscular Volume 92 fl (79-97); Monocytes # (Auto) 1.2 K/mm3 (0.0-0.8); Platelet Count 288 K/mm3 (140-440); Red Blood Count 3.83 M/mm3 (3.65-5.03); Red Cell Distribution Width 13.4 % (13.2-15.2)
[2020-04-22 10:19] LABS: Hematocrit 35.2 % (30.3-42.9); Hemoglobin 12.8 gm/dl (10.1-14.3)
[2020-04-22 10:33] LABS: BUN/Creatinine Ratio 16; Blood Urea Nitrogen 13 mg/dL (7-17); Calcium 8.7 mg/dL (8.4-10.2); Hemolysis Index 3
[2020-04-22] MEDS: POLYETHYLENE GLYCOL 3350 17 GM POWDER PO SCH (10:47)
--- NOTE | 2020-04-22 15:59 | Progress Note ---
Assessment and Plan Assessment and plan: 79 YO Female with HTN, COPD,CVA on DAPT,OA,HLD, CHF, DM, HLD, PE not currently on therapeutic anticoagulation presents to ED for evaluation. Pt was discharged home on 04/20/2020 after treatment for COPD exacerbation. Patient represents today with a new presenting symptom of abdominal pain. Patient states that she experienced sudden onset of pain in her abdomen shortly after awakening from sleep this morning at 0700 hrs. Patient states that pain is 9/10, constant, periumbilical in location, without exacerbating or alleviating factors. EMS notified and upon arrival the patient was found to be in distress and subsequently transported to [facility] for further care and evaluation. Patient seen and evaluated in the emergency department. Lab and imaging studies reviewed. Patient underwent CT scan of the abdomen and pelvis which showed diffuse thickening of the left colon beginning at the splenic flexure and descending down to the rectum. Patient clinical symptoms combined with CT scan findings po ssibly consistent with ischemic colitis. Patient found to have constipation as well. Surgical team consulted in ED. Patient placed in observation status and admitted to medical floor. Patient denies fever, chills, chest pain, palpitations, productive cough, shortness of breath, bright red blood per rectum, ingestion of food/water from new or different sources, trauma, or known ill contacts. Prior admission on 04/18/2020 reviewed. All medication listed at time of admission have been reconciled. Advanced care planning conducted in the emergency department. (1) Abdominal pain secondary to constipation no evidence of ischemic bowel disease Current Visit: Yes Status: Acute Plan to address problem: CT scan abdomen and pelvis, CTA abdomen and pelvis ordered and pending at time of admission, surgery team consulted, serial lactic acid level, IV fluid resuscitation therapy, bowel rest, serial abdominal exam. Discussed with surgery will start on some bowel regimen.. (2) Acute abdominal pain Current Visit: Yes Status: Acute Plan to address problem: CT scan abdomen and pelvis, supportive care, pain control, stool Hemoccult, serial abdominal exam, serial lactic acid level. (3) SIRS (systemic inflammatory response syndrome) Current Visit: Yes Status: Acute Plan to address problem: Supportive care, empiric IV antibiotic therapy. Suspect leukocytosis secondary to demargination with chronic steroid therapy. CBC, CMP, urinalysis, chest x- ray, supportive care. Repeat CBC in a.m. (4) HTN (hypertension) Current Visit: Yes Status: Acute Qualifiers: Hypertension type: essential hypertension Qualified Code(s): I10 - Essential (primary) hypertension Plan to address problem: Monitor blood pressure every shift, continue medical management. (5) HLD (hyperlipidemia) Current Visit: Yes Status: Acute Qualifiers: Hyperlipidemia type: mixed hyperlipidemia Qualified Code(s): E78.2 - Mixed hyperlipidemia Plan to address problem: Balanced diet, statin therapy as clinically indicated. Low-fat/low-cholesterol diet. (6) COPD (chronic obstructive pulmonary disease) Current Visit: Yes Status: Acute Qualifiers: COPD type: emphysema Plan to address problem: Submental oxygen, pulse oximetry, nebulizer therapy, supportive care. No acute exacerbation at this time (7) hyponatremia Monitor closely (9)CHF (congestive heart failure) stable Current Visit: Yes Status: Chronic Plan to address problem: Compensated, strict I's/O, daily weight, monitor urine output every shift, afterload reduction, blood pressure control. No acute exacerbation of systolic or diastolic heart failure at this time (9) DVT prophylaxis Current Visit: Yes Status: Acute Plan to address problem: SCD to bilateral lower extremities while in bed, patient is ambulatory. (10) Advance care planning Current Visit: Yes Status: Acute Plan to address problem: Disease education conducted, patient is full code, patient acknowledges understanding and agreement with care plan, +30 minutes. History Interval history: Patient seen and examined, initially this morning complaining of abdominal pain on reexamination states that is improving some. Hospitalist Physical - Physical exam Narrative exam: VITAL SIGNS: Reviewed. GENERAL: The patient appears normally developed, Vital signs as documented. HEAD: No signs of head trauma. EYES: Pupils are equal. Extraocular motions intact. EARS: Hearing grossly intact. MOUTH: Oropharynx is normal. NECK: No adenopathy, no JVD. CHEST: Chest with clear breath sounds bilaterally. No wheezes, rales, or rhonchi. CARDIAC: Regular rate and rhythm. S1 and S2, without murmurs, gallops, or rubs. VASCULAR: No Edema. Peripheral pulses normal and equal in all extremities. ABDOMEN: Soft, non tender and non distended. No rebound or guarding, and no masses palpated. Bowel Sounds normal. MUSCULOSKELETAL: Good range of motion of all major joints. Extremities without clubbing, cyanosis or edema. NEUROLOGIC EXAM: Alert and oriented x 3 No focal sensory or strength deficits. Speech normal. Follows commands. PSYCHIATRIC: Mood normal. SKIN: detail exam as documented in skin assessment - Constitutional Vitals: Temp Pulse Resp BP Pulse Ox 98.5 F 71 18 120/62 93 04/22/20 15:40 04/22/20 15:40 04/22/20 15:40 04/22/20 15:40 04/22/20 15:40 General appearance: Present: mild distress HEART Score - HEART Score Troponin: Troponin T < 0.010 ng/mL (0.00-0.029) 04/21/20 13:10 Results - Labs CBC & Chem 7: 04/22/20 Unknown 04/22/20 09:03 Labs: Laboratory Last Values WBC 13.4 K/mm3 (4.5-11.0) H 04/22/20 Unknown RBC 3.83 M/mm3 (3.65-5.03) 04/22/20 Unknown Hgb 12.8 gm/dl (10.1-14.3) 04/22/20 Unknown Hct 35.2 % (30.3-42.9) 04/22/20 Unknown MCV 92 fl (79-97) 04/22/20 Unknown MCH 33 pg (28-32) H 04/22/20 Unknown MCHC 36 % (30-34) H 04/22/20 Unknown RDW 13.4 % (13.2-15.2) 04/22/20 Unknown Plt Count 288 K/mm3 (140-440) 04/22/20 Unknown Lymph % (Auto) 13.3 % (13.4-35.0) L 04/22/20 Unknown Ray % (Auto) 9.0 % (0.0-7.3) H 04/22/20 Unknown Eos % (Auto) 0.1 % (0.0-4.3) 04/22/20 Unknown Baso % (Auto) 0.1 % (0.0-1.8) 04/22/20 Unknown Lymph # 1.8 K/mm3 (1.2-5.4) 04/22/20 Unknown Ray # 1.2 K/mm3 (0.0-0.8) H 04/22/20 Unknown Eos # 0.0 K/mm3 (0.0-0.4) 04/22/20 Unknown Baso # 0.0 K/mm3 (0.0-0.1) 04/22/20 Unknown Seg Neutrophils % 77.5 % (40.0-70.0) H 04/22/20 Unknown Seg Neutrophils # 10.4 K/mm3 (1.8-7.7) H 04/22/20 Unknown PT 12.5 Sec. (12.2-14.9) 04/21/20 10:53 INR 0.92 (0.87-1.13) 04/21/20 10:53 D-Dimer 1095.55 ng/mlDDU (0-234) H 04/21/20 10:53 Sodium 128 mmol/L (137-145) L 04/22/20 09:03 Potassium 4.3 mmol/L (3.6-5.0) 04/22/20 09:03 Chloride 90.8 mmol/L (98-107) L 04/22/20 09:03 Carbon Dioxide 25 mmol/L (22-30) 04/22/20 09:03 Anion Gap 17 mmol/L 04/22/20 09:03 BUN 13 mg/dL (7-17) 04/22/20 09:03 Creatinine 0.8 mg/dL (0.7-1.2) 04/22/20 09:03 Estimated GFR > 60 ml/min 04/22/20 09:03 BUN/Creatinine Ratio 16 % 04/22/20 09:03 Glucose 104 mg/dL (65-100) H 04/22/20 09:03 Lactic Acid 1.40 mmol/L (0.7-2.0) 04/22/20 05:34 Calcium 8.7 mg/dL (8.4-10.2) 04/22/20 09:03 Magnesium 3.20 mg/dL (1.7-2.3) H 04/21/20 10:53 Total Bilirubin 0.30 mg/dL (0.1-1.2) 04/21/20 10:53 AST 38 units/L (5-40) 04/21/20 10:53 ALT 35 units/L (7-56) 04/21/20 10:53 Alkaline Phosphatase 93 units/L (35-129) 04/21/20 10:53 Total Creatine Kinase 66 units/L (30-135) 04/21/20 10:53 Troponin T < 0.010 ng/mL (0.00-0.029) 04/21/20 13:10 Total Protein 5.7 g/dL (6.3-8.2) L 04/21/20 10:53 Albumin 3.9 g/dL (3.9-5) 04/21/20 10:53 Albumin/Globulin Ratio 2.2 % 04/21/20 10:53 Urine Color Yellow (Yellow) 04/21/20 11:22 Urine Turbidity Clear (Clear) 04/21/20 11:22 Urine pH 6.0 (5.0-7.0) 04/21/20 11:22 Ur Specific Chana 1.014 (1.003-1.030) 04/21/20 11:22 Urine Protein <15 mg/dl mg/dL (Negative) 04/21/20 11:22 Urine Glucose (UA) Neg mg/dL (Negative) 04/21/20 11:22 Urine Ketones Neg mg/dL (Negative) 04/21/20 11:22 Urine Blood Neg (Negative) 04/21/20 11:22 Urine Nitrite Neg (Negative) 04/21/20 11:22 Urine Bilirubin Neg (Negative) 04/21/20 11:22 Urine Urobilinogen < 2.0 mg/dL (<2.0) 04/21/20 11:22 Ur Leukocyte Esterase Sm (Negative) 04/21/20 11:22 Urine WBC (Auto) 3.0 /HPF (0.0-6.0) 04/21/20 11:22 Urine RBC (Auto) 2.0 /HPF (0.0-6.0) 04/21/20 11:22 U Epithel Cells (Auto) 1.0 /HPF (0-13.0) 04/21/20 11:22 Urine Mucus Few /HPF 04/21/20 11:22 Microbiology: Microbiology 04/21/20 13:10 Peripheral/Venous Blood Culture - Preliminary NO GROWTH AFTER 24 HOURS 04/21/20 13:10 Peripheral/Venous Blood Culture - Preliminary NO GROWTH AFTER 24 HOURS 04/21/20 11:22 Urine,Clean Catch Urine Culture - Preliminary NO GROWTH AFTER 24 HOURS 04/21/20 15:50 Stool Stool Occult Blood (RACHAEL) - Final Haines/IV: Voiding Method Toilet IV Catheter Type [Right INT / Saline Lock Forearm] IV Catheter Type [Right Hand] Peripheral IV IV Catheter Type [Left Hand] INT / Saline Lock Active Medications - Current Medications Current Medications: Generic Name Dose Route Start Last Admin Trade Name Freq PRN Reason Stop Dose Admin Acetaminophen 650 mg 04/21/20 13:20 Tylenol PO Q4H PRN Pain MILD(1-3)/Fever >100.5/HORNE Arformoterol Tartrate 15 mcg 04/21/20 20:00 04/22/20 09:18 Brovana Nebu IH 15 mcg Q12HRT MIGUEL Administration Aspirin 81 mg 04/22/20 10:00 04/22/20 09:44 Halfprin Ec PO 81 mg QDAY MIGUEL Administration Atorvastatin Calcium 40 mg 04/21/20 22:00 04/21/20 21:05 Lipitor PO 40 mg QHS MIGUEL Administration Budesonide 0.5 mg 04/21/20 20:00 04/22/20 09:18 Pulmicort IH 0.5 mg Q12HRT MIGUEL Administration Calcium Carbonate/Glycine 1,250 mg 04/21/20 22:00 04/22/20 09:44 Oscal PO 1,250 mg BID MIGUEL Administration Carbamazepine 200 mg 04/21/20 22:00 04/22/20 09:44 Tegretol Xr PO 200 mg BID MIGUEL Administration Cholecalciferol 1,000 unit 04/22/20 10:00 04/22/20 09:44 Vitamin D3 PO 1,000 unit DAILY MIGUEL Administration Clopidogrel Bisulfate 75 mg 04/22/20 10:00 04/22/20 09:44 Plavix PO 75 mg QDAY MIGUEL Administration Famotidine 10 mg 04/21/20 22:00 04/22/20 09:44 Pepcid PO 10 mg BID MIGUEL Administration Lorazepam 1 mg 04/21/20 22:00 04/22/20 09:44 Ativan PO 1 mg Q12HR MIGUEL Administration Metoprolol Tartrate 25 mg 04/21/20 22:00 04/22/20 09:44 Metoprolol PO 25 mg BID MIGUEL Administration Miscellaneous Medication 1 drops 04/21/20 22:00 Dorzolamide/Timolol(Nf) 2-0.5% OP BID [facility] Multivitamins/Minerals 1 each 04/22/20 10:00 04/22/20 09:44 Theragran-M Tab PO 1 each QDAY MIGUEL Administration Olanzapine 15 mg 04/21/20 22:00 04/21/20 21:06 Zyprexa PO 15 mg QHS MIGUEL Administration Ondansetron HCl 4 mg 04/21/20 13:20 04/22/20 00:38 Zofran IV 4 mg Q8H PRN Administration Nausea And Vomiting Polyethylene Glycol 17 gm 04/22/20 11:00 04/22/20 10:47 Miralax 3350 PO 17 gm QDAY MIGUEL Administration Senna/Docusate Sodium 2 tab 04/21/20 13:23 Senokot S PO Q12H PRN Laxative Effect Sodium Chloride 10 ml 04/21/20 22:00 04/22/20 09:47 Sodium Chloride Flush Syringe 10 Ml IV 10 ml BID MIGUEL Administration Sodium Chloride 10 ml 04/21/20 13:20 Sodium Chloride Flush Syringe 10 Ml IV PRN PRN LINE FLUSH Trazodone HCl 50 mg 04/21/20 22:00 04/21/20 21:05 Desyrel PO 50 mg QHS MIGUEL Administration Zolpidem Tartrate 5 mg 04/21/20 13:24 Ambien PO QHS PRN Sleep
[2020-04-22] MEDS: traZODone 50 MG TAB PO SCH (21:42)
[2020-04-23 05:31] LABS: Hematocrit 35.4 % (30.3-42.9); Hemoglobin 12.1 gm/dl (10.1-14.3); Mean Corpuscular HGB Conc 34 % (30-34); Mean Corpuscular Volume 93 fl (79-97); Platelet Count 237 K/mm3 (140-440); Red Blood Count 3.83 M/mm3 (3.65-5.03); Red Cell Distribution Width 13.3 % (13.2-15.2)
[2020-04-23 05:42] LABS: BUN/Creatinine Ratio 11; Blood Urea Nitrogen 8 mg/dL (7-17); Calcium 8.4 mg/dL (8.4-10.2); Hemolysis Index 10
[2020-04-23] MEDS: BUDESONIDE 0.5 MG/2 ML NEBU IH SCH (08:10)
[2020-04-23] MEDS: ARFORMOTEROL 15 MCG/2 ML NEBU IH SCH (08:10)
[2020-04-23] MEDS: carBAMazepine XR 200 MG TAB PO SCH (09:16)
[2020-04-23] MEDS: POLYETHYLENE GLYCOL 3350 17 GM POWDER PO SCH (09:16)
[2020-04-23] MEDS: MULTIVITAMINS,THER W-MINERALS TAB PO SCH (09:16)
[2020-04-23] MEDS: METOPROLOL TARTRATE 25 MG TAB PO SCH (09:16)
[2020-04-23] MEDS: FAMOTIDINE 10 MG TAB PO SCH (09:16)
[2020-04-23] MEDS: CLOPIDOGREL 75 MG TAB PO SCH (09:16)
[2020-04-23] MEDS: LORazepam 1 MG TAB PO SCH (09:16)
[2020-04-23] MEDS: CALCIUM CARBONATE 1250 MG TAB PO SCH (09:16)
[2020-04-23] MEDS: CHOLECALCIFEROL (VIT D3) 1000 UNIT (25 mcg) TAB PO SCH (09:16)
[2020-04-23] MEDS: ASPIRIN EC 81 MG TAB PO SCH (09:16)
--- NOTE | 2020-04-23 10:38 | Discharge Summary ---
Providers - Providers Date of Admission: 04/21/20 13:20 Attending physician: GREGORY GOODMAN MD 04/21/20 11:12 Consult to Case Management [CONS] Stat Services Needed at Discharge: [facility] Notified:: yes 04/21/20 13:20 Consult to Physician [CONS] Routine Comment: Consulting Provider: ZENOBIA NOWAK Physician Instructions: Reason For Exam: bowel ischemia Primary care physician: NEEDLEWORKER Hospitalization Reason for admission: Severe constipation Condition: Stable Hospital course: 79 YO Female with HTN, COPD,CVA on DAPT,OA,HLD, CHF, DM, HLD, PE not currently on therapeutic anticoagulation presents to ED for evaluation. Pt was discharged home on 04/20/2020 after treatment for COPD exacerbation. Patient represents today with a new presenting symptom of abdominal pain. Patient states that she experienced sudden onset of pain in her abdomen shortly after awakening from sleep this morning at 0700 hrs. Patient states that pain is 9/10, constant, periumbilical in location, without exacerbating or alleviating factors. EMS notified and upon arrival the patient was found to be in distress and subsequently transported to [facility] for further care and evaluation. Patient seen and evaluated in the emergency department. Lab and imaging studies reviewed. Patient underwent CT scan of the abdomen and pelvis which showed diffuse thickening of the left colon beginning at the splenic flexure and descending down to the rectum. Patient clinical symptoms combined with CT scan findings possibly consistent with ischemic colitis. Patient found to have constipation as well. Surgical team consulted in ED. Patient placed in observation status and admitted to medical floor. Patient denies fever, chills, chest pain, palpitations, productive cough, shortness of breath, bright red blood per rectum, ingestion of food/water from new or different sources, trauma, or known ill contacts. Prior admission on 04/18/2020 reviewed. All medication listed at time of admission have been reconciled. Advanced care planning conducted in the emergency department. Patient moved her bowels and is stable for discharge. Bowel regimen was recommended for the patient. This is consistent with cardia (1) Abdominal pain secondary to constipation no evidence of ischemic bowel disease (2) hyponatremia (3) SIRS (systemic inflammatory response syndrome) (4) HTN (hypertension) (5) HLD (hyperlipidemia) (6) COPD (chronic obstructive pulmonary disease) (7)CHF (congestive heart failure) stable Disposition: DC-01 TO HOME OR SELFCARE Time spent for discharge: 35 mins Core Measure Documentation - Palliative Care Palliative Care/ Comfort Measures: Not Applicable - Core Measures Any of the following diagnoses?: none Exam - Physical Exam Narrative exam: VITAL SIGNS: Reviewed. GENERAL: The patient appears normally developed, Vital signs as documented. HEAD: No signs of head trauma. EYES: Pupils are equal. Extraocular motions intact. EARS: Hearing grossly intact. MOUTH: Oropharynx is normal. NECK: No adenopathy, no JVD. CHEST: Chest with clear breath sounds bilaterally. No wheezes, rales, or rhonchi. CARDIAC: Regular rate and rhythm. S1 and S2, without murmurs, gallops, or rubs. VASCULAR: No Edema. Peripheral pulses normal and equal in all extremities. ABDOMEN: Soft, non tender and non distended. No rebound or guarding, and no masses palpated. Bowel Sounds normal. MUSCULOSKELETAL: Good range of motion of all major joints. Extremities without clubbing, cyanosis or edema. NEUROLOGIC EXAM: Alert and oriented x 3 No focal sensory or strength deficits. Speech normal. Follows commands. PSYCHIATRIC: Mood normal. SKIN: detail exam as documented in skin assessment - Constitutional Vitals: Temp Pulse Resp BP Pulse Ox 98.4 F 89 19 131/76 94 04/23/20 09:14 04/23/20 09:16 04/23/20 09:14 04/23/20 09:16 04/23/20 09:14 Plan Activity: advance as tolerated, fall precautions Diet: low fat Special Instructions: record daily weights, record daily BP diary Follow up with: PRIMARY MD KULDEEP [Primary Care Provider] - 3-5 Days BRITTANY MALAGON MD [Staff Physician] - 7 Days ZENOBIA NOWAK MD [Staff Physician] - 7 Days Prescriptions: Docusate Sodium [Colace CAP] 100 mg PO BID #60 capsule bisacodyL [Dulcolax suppos] 10 mg ND QDAY #10 supp.rect Polyethylene Glycol 3350 [Miralax] 119 gm PO DAILY #30 powder
--- NOTE | 2020-04-23 10:44 | Progress Note ---
Assessment and Plan (1) Acute abdominal pain Current Visit: Yes Status: Acute Plan to address problem: Pt stable. Patient has a benign abdomen. This is not consistent with infectious or ischemic colitis. Abdominal pain resolved. Plan: 1. adv to soft diet 2. continue bowel regimen at home 3. if calvin soft diet, ok to dc from surgery standpoint. Thank you, please call with questions. Subjective Date of service: 04/23/20 Narrative: Pt seen and examined. States her abdominal pain is resolved. No f/c, n/v. She is tolerating clear liquids without difficulty. +Small bm which she states had so me bright red blood streaks and was diarrhea Objective Vital Signs - 12hr 04/22/20 04/23/20 04/23/20 23:56 08:10 08:12 Temperature 98.0 F Pulse Rate 63 Pulse Rate [ 82 Bilateral] Respiratory 17 Rate Respiratory 18 Rate [Bilateral ] Blood Pressure 102/48 O2 Sat by Pulse 97 96 Oximetry 04/23/20 04/23/20 09:14 09:16 Temperature 98.4 F Pulse Rate 89 89 Pulse Rate [ Bilateral] Respiratory 19 Rate Respiratory Rate [Bilateral ] Blood Pressure 131/76 131/76 O2 Sat by Pulse 94 Oximetry - General physical appearance Narrative Exam: Gen: AAOx3. NAD CV: s1, S2+ resp: even and unlabored Abd: soft, NT, ND Ext: no c/c/e - Labs 04/23/20 04:32 04/23/20 04:32 Diabetes panel 04/23/20 Range/Units 04:32 Sodium 131 L (137-145) mmol/L Potassium 3.9 (3.6-5.0) mmol/L Chloride 94.9 L (98-107) mmol/L Carbon Dioxide 25 (22-30) mmol/L BUN 8 (7-17) mg/dL Creatinine 0.7 (0.7-1.2) mg/dL Glucose 92 (65-100) mg/dL Calcium 8.4 (8.4-10.2) mg/dL Calcium panel 04/23/20 Range/Units 04:32 Calcium 8.4 (8.4-10.2) mg/dL Pituitary panel 04/23/20 Range/Units 04:32 Sodium 131 L (137-145) mmol/L Potassium 3.9 (3.6-5.0) mmol/L Chloride 94.9 L (98-107) mmol/L Carbon Dioxide 25 (22-30) mmol/L BUN 8 (7-17) mg/dL Creatinine 0.7 (0.7-1.2) mg/dL Glucose 92 (65-100) mg/dL Calcium 8.4 (8.4-10.2) mg/dL Adrenal panel 04/23/20 Range/Units 04:32 Sodium 131 L (137-145) mmol/L Potassium 3.9 (3.6-5.0) mmol/L Chloride 94.9 L (98-107) mmol/L Carbon Dioxide 25 (22-30) mmol/L BUN 8 (7-17) mg/dL Creatinine 0.7 (0.7-1.2) mg/dL Glucose 92 (65-100) mg/dL Calcium 8.4 (8.4-10.2) mg/dL
[2020-04-23 13:11] VITALS: BP 151/72
== END 2020-04-23 13:05 | disposition home or self-care (01) ==
LOC: ED 09:56 → 3A 13:20 → 3B-SURG 17:03
PROVIDERS: ADMIT Internal Medicine; ATTEND Internal Medicine
DX: K55.9 Vascular disorder of intestine, unspecified (principal); K59.00 Constipation, unspecified; K52.9 Noninfective gastroenteritis and colitis, unspecified; R65.10 Systemic inflammatory response syndrome (SIRS) of non-infectious origin without acute organ dysfunction; E87.1 Hypo-osmolality and hyponatremia; J44.1 Chronic obstructive pulmonary disease with (acute) exacerbation; I11.0 Hypertensive heart disease with heart failure; I50.9 Heart failure, unspecified; E78.2 Mixed hyperlipidemia; I25.2 Old myocardial infarction; M19.90 Unspecified osteoarthritis, unspecified site; E11.9 Type 2 diabetes mellitus without complications; Z86.73 Personal history of transient ischemic attack (TIA), and cerebral infarction without residual deficits; Z86.711 Personal history of pulmonary embolism; Z90.49 Acquired absence of other specified parts of digestive tract; Z90.710 Acquired absence of both cervix and uterus; Z79.82 Long term (current) use of aspirin; Z79.02 Long term (current) use of antithrombotics/antiplatelets; Z79.899 Other long term (current) drug therapy; Z88.0 Allergy status to penicillin; Z88.1 Allergy status to other antibiotic agents; Z88.8 Allergy status to other drugs, medicaments and biological substances
CPT/HCPCS: 36415; 71045; 74176; 78580; 80048; 80053; 81001; 82140; 82270; 82550; 83735; 84484; 85025; 85027; 85379; 85610; 87040; 87086; 93005; 94640; 94760; 96365; 96367; 96375; 99291; A9270; A9540; G0378; J1956; J2270; J2405; J7050